=== PATIENT | female | born 1940 | race Caucasian/White ===

== ENCOUNTER → 2016-12-14 | Outpatient (CLI) | payer OTHER, BC ==
[~2016-12-14] MED LIST: AMLO-110 PO; APR/25 PO; ASPI81TA28 PO; ATEN50TA8 PO; BNC/4025 PO; CALCTAB7 PO; CHOL1000 PO; CHOL1CAP13 PO; FURO-85 PO; FURO40TA3 PO; GABA-113 PO; HYDR-4330 PO; HYDR-4715 PO; IBUP-1277 PO; MAGN1TAB15 PO; MECL1TAB42 PO; MULT1TAB79 PO; NAPR220T40 PO; POTA-74 PO; SIMV20TA2 PO; SPIR50TA2 PO; TYLOTC500 PO; ULT/50 PO; WARF-246 PO
[2016-12-14 17:31] LABS: BASO % 0.3 %; BASO ABS # 0.02 K/uL (0-0.2); COMPLETE YES; EOS % 4.7 %; HEMATOCRIT 39.4 % (37-47); IG% 0.1 %; LYMPH % 20.9 %; LYMPH ABS # 1.56 K/uL (1.2-3.4); MEAN CELL VOLUME 90.2 fL (80-100); MEAN CORPUSCULAR HEMOGLOBIN 29.5 pg (25-34); MEAN CORPUSCULAR HGB CONC 32.7 g/dl (32-36); MEAN PLATELET VOLUME 10.2 fL (7.4-10.4); MONO % 9.5 %; NEUT % 64.5 %; PLATELET COUNT 221 K/uL (130-400); RED BLOOD COUNT 4.37 M/uL (4.2-5.4); WHITE BLOOD COUNT 7.45 K/uL (4.8-10.8)
[2016-12-14 17:39] LABS: URINE APPEARANCE CLEAR (CLEAR); URINE BILIRUBIN NEG (NEG); URINE COLOR YELLOW; URINE EPITHELIAL CELL AUTO 0-5 /lpf (0-5); URINE NITRITE NEG (NEG); URINE PH 6.5 (4.5-7.5); URINE SPECIFIC GRAVITY 1.006 (1.000-1.030); UROBILINOGEN NEG (NEG)
[2016-12-14 17:49] LABS: BLOOD UREA NITROGEN 10 mg/dl (7-18); BUN/CREATININE RATIO 12.5 (10-20); CALCIUM 10.1 mg/dl (8.5-10.1); CARBON DIOXIDE 36 mmol/L (21-32); CHLORIDE 101 mmol/L (98-107); CREATININE 0.84 mg/dl (0.60-1.20); GLUCOSE 93 mg/dl (70-99); POTASSIUM 4.3 mmol/L (3.5-5.1); SODIUM 140 mmol/L (136-145)
[2016-12-14 17:50] LABS: MANUAL MICROSCOPIC REQUIRED? NO; REVIEW REQ? NO
[2016-12-14 17:59] LABS: PHOSPHORUS 3.3 mg/dl (2.5-4.9)
[2016-12-14 18:08] LABS: URINE TOTAL PROTEIN < 5.0 mg/dl (0-11.9)
== END | disposition home or self-care (01) ==
LOC: C.LABPVFM 14:32
PROVIDERS: ATTEND Family Medicine
DX: E78.5 Hyperlipidemia, unspecified (principal)

== ENCOUNTER → 2016-12-22 | Outpatient (CLI) | payer OTHER, BC ==
[~2016-12-22] MED LIST changes: -APR/25 PO; +HYDR-4716 PO
--- NOTE | 2016-12-22 15:53 | DIAGNOSTIC IMAGING REPORT ---
RENAL ULTRASOUND CLINICAL HISTORY: Hyperlipidemia. COMPARISON STUDY: None. TECHNIQUE: Sonography of the kidneys and the urinary bladder was performed. FINDINGS: This exam is compromised by suboptimal penetration. The right kidney measures 9 x 5.2 x 5.9 cm and the left measures 11 x 4.7 x 6.4 cm. There is mild renal cortical thinning. There is no hydronephrosis. No calculi or masses are identified by sonography. The right ureteral jet was not visualized. IMPRESSION: 1. No hydronephrosis. 2. Mild renal cortical thinning. 3. Study compromised by suboptimal penetration. Electronically signed by: Clark Gonsalez M.D. 12/22/2016 3:50 PM Dictated Date/Time: 12/22/2016 3:49 PM
== END | disposition home or self-care (01) ==
LOC: C.ULTR 14:31
PROVIDERS: ATTEND Family Medicine
DX: E78.5 Hyperlipidemia, unspecified (principal)

== ENCOUNTER → 2017-01-11 | Day surgery (SDC) | payer OTHER, BC ==
[2017-01-02 15:24] VITALS: Ht 149.9 cm; Wt 82.9 kg
--- NOTE | 2017-01-02 15:57 | PAT Medication Instructions ---
Service Date Jan 02, 2017. Current Home Medication List Acetaminophen (Tylenol), 500-1,000 MG PO PRN PRN for Pain or Fever Aspirin (Aspirin Ec), 81 MG PO QAM Atenolol (Tenormin), 75 MG PO HS Calcium Carbonate-Vitamin D W/ (Caltrate 600 Plus), 1 TAB PO BID Cholecalciferol (Vitamin D3), 1,000 INTER.UNIT PO BID Furosemide (Lasix), 20 MG PO QAM Gabapentin (Neurontin), 300 MG PO TID Hydralazine Hcl (Apresoline), 10 MG PO TID Magnesium Chloride-Calcium Car (Slow Magnesium Chloride/ 70-117 mg), 1 TAB PO QAM Meclizine Hcl (Meclizine Hcl), 1 TAB PO PRN Multiple Vitamins W/ Minerals (Womens Daily Formula), 1 TAB PO QAM Olmesartan/Hctz (Benicar Hct 40/25), 1 TAB PO QAM Potassium Chloride (Potassium Chloride Er), 10 MEQ PO BID Simvastatin (Zocor), 20 MG PO QPM Warfarin Sodium (Warfarin Sodium), 5 MG PO WK Warfarin Sodium (Warfarin Sodium), 2.5 MG PO 6XWK Medication Instructions For Your Scheduled Surgery - Check with prescribing physician and surgeon for instructions: Warfarin Sodium (Warfarin Sodium), 5 MG PO WK Warfarin Sodium (Warfarin Sodium), 2.5 MG PO 6XWK - Hold the following medications the morning of surgery: Furosemide (Lasix), 20 MG PO QAM Calcium Carbonate-Vitamin D W/ (Caltrate 600 Plus), 1 TAB PO BID Cholecalciferol (Vitamin D3), 1,000 INTER.UNIT PO BID Magnesium Chloride-Calcium Car (Slow Magnesium Chloride/ 70-117 mg), 1 TAB PO QAM Multiple Vitamins W/ Minerals (Womens Daily Formula), 1 TAB PO QAM Olmesartan/Hctz (Benicar Hct 40/25), 1 TAB PO QAM Potassium Chloride (Potassium Chloride Er), 10 MEQ PO BID - Take the following medications the morning of surgery with a sip of water OTHERWISE NOTHING TO EAT OR DRINK AFTER MIDNIGHT: Gabapentin (Neurontin), 300 MG PO TID Hydralazine Hcl (Apresoline), 10 MG PO TID Aspirin (Aspirin Ec), 81 MG PO QAM Meclizine Hcl (Meclizine Hcl), 1 TAB PO PRN Acetaminophen (Tylenol), 500-1,000 MG PO PRN PRN for Pain or Fever (may take if needed up to 4 hours prior to surgery) - Take the following medications as scheduled the night before surgery: Gabapentin (Neurontin), 300 MG PO TID Hydralazine Hcl (Apresoline), 10 MG PO TID Calcium Carbonate-Vitamin D W/ (Caltrate 600 Plus), 1 TAB PO BID Cholecalciferol (Vitamin D3), 1,000 INTER.UNIT PO BID Simvastatin (Zocor), 20 MG PO QPM Atenolol (Tenormin), 75 MG PO HS Meclizine Hcl (Meclizine Hcl), 1 TAB PO PRN Potassium Chloride (Potassium Chloride Er), 10 MEQ PO BID Acetaminophen (Tylenol), 500-1,000 MG PO PRN PRN for Pain or Fever If you have any questions please call us at [phone] or [phone] or [phone]
[~2017-01-11] VITALS: Ht 149.9 cm; Wt 82.9 kg
[~2017-01-11] MED LIST changes: +500ML BSS 0.3ML EPI 1:1000PF IRRIG ONE; +ACETAMINOPHEN 325 MG TAB PO PRN; -AMLO-110 PO; +AMVISC PLUS 0.8ML SYRINGE INT OCU ONE; +BSS FLUSH ONE; +ENDOCOAT 0.85ML SYRINGE INT OCU ONE; +EpHEDrine SULFATE 50MG/5ML SYR ONE; +EpINEphrine INJ 1MG/ML AMP 1 MG/ML AMP ONE; -FURO40TA3 PO; -HYDR-4330 PO; -IBUP-1277 PO; +LACTATED RINGER'S 1000ML 1,000 ML IV PRN; +LACTATED RINGER'S 1000ML 500 ML IV SCH; +LIDOCAINE 4% OP SOLN DROP CHARGE ONE; +LIDOCAINE 4% OP SOLN DROP CHARGE OPR SCH; +LIDOCAINE HCL 1% MPF 2 ML VIAL ONE; +LIDOCAINE HCL 2% 2 ML VIAL (20MG/ML) ONE; +MIDAZOLAM HCL 1 MG/ML 2ML VIAL ONE; +MIX: 4ML BSS 1ML EPI 1:1000 PF TOP ONE; +MOXIFLOXACIN OPH SOLN PER DROP CHARGE ONE; -NAPR220T40 PO; +ONDANSETRON INJ 2 MG/ML 2 ML VIAL IV PRN; +ONDANSETRON INJ 2 MG/ML 2 ML VIAL ONE; +POVIDONE-IODINE OP SOLN 30 ML BTL ONE; +PROPARACAINE 0.5% OP SOLN PER DROP CHARGE OPR SCH; +PROPOFOL IV EMULSION 10 MG/ML 20 ML VIAL IV ONE; +TOBRAMYCIN/DEXAMETHASONE OPH OINT PER APPLN CHARGE ONE; -ULT/50 PO
[2017-01-11] MEDS: PHENYLEPHRINE HCL 2.5% OP SOLN PER DROP CHARGE OPR SCH ×3 (06:38→06:48)
[2017-01-11] MEDS: TROPICAMIDE 1% OP SOLN PER DROP CHARGE OPR SCH ×3 (06:39→06:49)
--- NOTE | 2017-01-11 06:39 | History & Physical Bridge - [place] ---
H&P Re-Evaluation Bridge Note: I have examined the patient, reviewed the History & Physical and in the interval since the performance of the History & Physical I have noted the following changes of clinical significance: No changes noted. Right eye cataract surgery
[2017-01-11] MEDS: CYCLOPENTOLATE HCL 1% OP SOLN PER DROP CHARGE OPR SCH ×3 (06:40→06:50)
[2017-01-11] MEDS: MOXIFLOXACIN OPH SOLN PER DROP CHARGE OPR SCH ×3 (06:41→06:51)
--- NOTE | 2017-01-11 07:33 | [facility] Post Operative Brief Note ---
Immediate Operative Summary Operative Date Jan 11, 2017. Pre-Operative Diagnosis Cataract Right Eye Post-Operative Diagnosis Same Procedure(s) Performed Right Cataract Phacoemulsification With Intraocular Lens Implant Surgeon Dr. Bearden Can Intake Worker Surgeon(s) None Estimated Blood Loss 0 Findings right cataract Specimens None Complication(s) None Disposition
--- NOTE | 2017-01-11 07:34 | [facility] Operative Report ---
Operative Report Date of Service Jan 11, 2017. Operative Report Phaco with monofocal IOL DATE OF OPERATION: 01/11/17 PREOPERATIVE DIAGNOSIS: Senile nuclear cataract, right eye POSTOPERATIVE DIAGNOSIS: Senile nuclear cataract, right eye PROCEDURE PERFORMED: Phacoemulsification with intraocular lens implantation, right eye SURGEON: Dr. Moose Bearden ANESTHESIA: LMA general COMPLICATIONS: None DESCRIPTION OF PROCEDURE: After positively identifying the patient both verbally and by wristband in the preoperative area, the right eye was marked as the operative eye. The patient was then brought back to the operating room by the anesthesia and nursing staff where general anesthesia by LMA was induced. The patient was then sterilely prepped and draped in the standard fashion typical for ophthalmic surgery. Steri-strips were placed along the upper eyelids to keep the lashes back, and a lid speculum was placed into the operative eye. At this point, a documented time out was performed with members of the ophthalmology, nursing, and anesthesia staffs all agreeing upon the correct patient, correct location for surgery, correct procedure, and correct type and power of intraocular lens to be implanted. The microscope was then swung into position. First, a paracentesis wound was made using a sideport blade. Then, in sequence, 1% preservative-free lidocaine followed by Endocoat viscoelastic was injected into the anterior chamber. Next , the main incision was made with a keratome blade in triplanar fashion. A sharp cystotome was introduced into the eye and used to create a tear in the anterior capsule, which was directed into a continuous curvilinear capsulorrhexis using Utrata forceps. Hydrodissection was then performed with BSS on a flat-tip cannula. Next, the phacoemulsification handpiece was introduced into the eye and used to remove the nucleus in a [id number] fashion. This was done without complication and then the irrigation-aspiration handpiece was introduced into the eye and used to remove all remaining cortical and epinuclear material. Amvisc was then injected into the anterior chamber as well as into the capsular bag and using the lens injector system, an MX60 23.0 D lens, serial number [id number], and expiration date 05/2019 was injected into the capsular bag and rotated into the correct position. Next, the irrigation- aspiration handpiece was used to remove all remaining Amvisc. BSS was used to hydrate the main wound, and then BSS was injected into the paracentesis site to reach physiologic pressure and then the main wound was checked and found to be watertight. The patient was given drops of Vigamox and Tobradex ointment into the operative eye, and then the surrounding area was cleaned and dried. A clear plastic shield was placed over the eye and the patient was then sat up and taken from the operating room by the anesthesia staff having tolerated the procedure well and suffering no complications. DISPOSITION: The patient was returned to the recovery room in stable condition. I attest to the content of the Intraoperative Record and any orders documented therein. Any exceptions are noted below.
--- NOTE | 2017-01-11 07:35 | Discharge Instructions-SurgCtr ---
Discharge Instructions Date of Service Jan 11, 2017. Visit Reason for Visit: Cataract Right Eye Discharge Discharge Diagnosis / Problem: right cataract Discharge Goals Goal(s): Decrease discomfort, Improve function Activity Recommendations Activity Limitations: as noted below Anesthesia . Post Anesthesia Instructions: If you have had General Anesthesia or IV Sedation: * Do not drive today. * Resume driving when surgeon permits. * Do not make important decisions or sign legal documents today. * Call surgeon for: 1. Temperature elevations greater than 101 degrees F. 2. Uncontrollable pain. 3. Excessive bleeding. 4. Persistent nausea and vomiting. 5. Medication intolerance (nausea, vomiting or rash). * For nausea and vomiting use only clear liquids such as: tea, soda, bouillon until nausea subsides, then gradually increase diet as tolerated. * If you have any concerns or questions, call your surgeon's office. If physician is unavailable and it is an emergency, call 911 or go to the nearest emergency room. . Instructions / Follow-Up Instructions / Follow-Up ACTIVITY RECOMMENDATIONS: * Light activities. * You may walk outside, read, watch television. * You may notice redness on the white part of the eye and some blurry vision - this is normal. MEDICATIONS: Resume previous medications unless instructed otherwise by your surgeon. Start all eye drops at 9:30 am today: * Eye drops (today): Prednisone - one drop in operative eye every 2 hours while awake Ofloxacin - one drop in operative eye every 2 hours while awake Bromfenac - one drop in operative eye daily SPECIAL CARE INSTRUCTIONS: * Tape plastic shield over eye to sleep at night. Call your doctor at with any concerns or problems. FOLLOW UP VISIT: Follow-up with Dr Bearden at [facility] as scheduled. Diet Recommendations Home Diet: no limitations Procedures Procedures Performed: Right Cataract Phacoemulsification With Intraocular Lens Implant Pending Studies Studies pending at discharge: no Medical Emergencies . Who to Call and When: Medical Emergencies: If at any time you feel your situation is an emergency, please call 911 immediately. . Non-Emergent Contact Non-Emergency issues call your: Surgeon . . "Provider Documentation" section prepared by Moose Bearden. .
--- NOTE | 2017-01-11 08:01 | Anesthesia Progress Nt - [facility] ---
Anesthesia Post Op Note Date & Time Jan 11, 2017 at 08:00 Vital Signs Pain Intensity: 0 Vital Signs Past 12 Hours Date Time Temp Pulse Resp B/P Pulse Ox O2 Delivery O2 Flow Rate FiO2 01/11/17 07:37 36.4 62 16 145/73 95 Diffusion Mask 6 01/11/17 06:31 37.2 68 20 176/104 98 Room Air Notes Mental Status: alert / awake / arousable, participated in evaluation Pt Amnestic to Procedure: Yes Nausea / Vomiting: adequately controlled Pain: adequately controlled Airway Patency, RR, SpO2: stable & adequate BP & HR: stable & adequate Hydration State: stable & adequate Anesthetic Complications: no major complications apparent After a long discussion, pt refused IV sedation, saying she couldn't stand someone touching her eye. We did a GA w/ LMA and she did fine.
[2017-01-11 08:13] VITALS: TEMP 36.4
[2017-01-11 08:38] VITALS: BP 164/72; PULSE 65; O2SAT 97
== END | disposition home or self-care (01) ==
LOC: X.SURG 06:10
PROVIDERS: ATTEND Ophthalmology
DX: H25.11 Age-related nuclear cataract, right eye (principal); I48.91 Unspecified atrial fibrillation; M19.90 Unspecified osteoarthritis, unspecified site; E66.9 Obesity, unspecified; Z68.37 Body mass index [BMI] 37.0-37.9, adult; Z88.0 Allergy status to penicillin; Z96.651 Presence of right artificial knee joint; Z79.01 Long term (current) use of anticoagulants; Z90.89 Acquired absence of other organs

== ENCOUNTER → 2017-01-24 | Outpatient (CLI) | payer OTHER, BC ==
[~2017-01-24] MED LIST changes: -500ML BSS 0.3ML EPI 1:1000PF IRRIG ONE; -ACETAMINOPHEN 325 MG TAB PO PRN; -AMVISC PLUS 0.8ML SYRINGE INT OCU ONE; -BSS FLUSH ONE; -ENDOCOAT 0.85ML SYRINGE INT OCU ONE; -EpHEDrine SULFATE 50MG/5ML SYR ONE; -EpINEphrine INJ 1MG/ML AMP 1 MG/ML AMP ONE; -LACTATED RINGER'S 1000ML 1,000 ML IV PRN; -LACTATED RINGER'S 1000ML 500 ML IV SCH; -LIDOCAINE 4% OP SOLN DROP CHARGE ONE; -LIDOCAINE 4% OP SOLN DROP CHARGE OPR SCH; -LIDOCAINE HCL 1% MPF 2 ML VIAL ONE; -LIDOCAINE HCL 2% 2 ML VIAL (20MG/ML) ONE; -MIDAZOLAM HCL 1 MG/ML 2ML VIAL ONE; -MIX: 4ML BSS 1ML EPI 1:1000 PF TOP ONE; -MOXIFLOXACIN OPH SOLN PER DROP CHARGE ONE; -ONDANSETRON INJ 2 MG/ML 2 ML VIAL IV PRN; -ONDANSETRON INJ 2 MG/ML 2 ML VIAL ONE; -POVIDONE-IODINE OP SOLN 30 ML BTL ONE; -PROPARACAINE 0.5% OP SOLN PER DROP CHARGE OPR SCH; -PROPOFOL IV EMULSION 10 MG/ML 20 ML VIAL IV ONE; -TOBRAMYCIN/DEXAMETHASONE OPH OINT PER APPLN CHARGE ONE
[2017-01-24 16:35] LABS: BLOOD UREA NITROGEN 11 mg/dl (7-18); BUN/CREATININE RATIO 12.7 (10-20); CALCIUM 9.5 mg/dl (8.5-10.1); CARBON DIOXIDE 30 mmol/L (21-32); CHLORIDE 103 mmol/L (98-107); GLUCOSE 91 mg/dl (70-99); MAGNESIUM 1.9 mg/dl (1.8-2.4); PHOSPHORUS 2.8 mg/dl (2.5-4.9); POTASSIUM 3.8 mmol/L (3.5-5.1); SODIUM 139 mmol/L (136-145)
== END | disposition home or self-care (01) ==
LOC: C.LAB1850 14:26
PROVIDERS: ATTEND Internal Medicine Nephrology
DX: I10 Essential (primary) hypertension (principal)

== ENCOUNTER → 2017-01-25 | Day surgery (SDC) | payer OTHER, BC ==
[2017-01-23 12:20] VITALS: Ht 149.9 cm; Wt 82.7 kg
[~2017-01-25] VITALS: Ht 149.9 cm; Wt 82.7 kg
[~2017-01-25] MED LIST changes: +500ML BSS 0.3ML EPI 1:1000PF IRRIG ONE; +ACETAMINOPHEN 325 MG TAB PO PRN; +AMVISC PLUS 0.8ML SYRINGE INT OCU ONE; +ATROPINE SULFATE 0.1 MG/ML 5ML SYR IV PRN; +BSS FLUSH ONE; +ENDOCOAT 0.85ML SYRINGE INT OCU ONE; +EpHEDrine SULFATE 50MG/5ML SYR ONE; +EpHEDrine SULFATE INJ 50 MG/ML AMP IV PRN; +EpINEphrine INJ 1MG/ML AMP 1 MG/ML AMP ONE; +FENTANYL CITRATE INJ 50 MCG/1 ML 2 ML VIAL ONE; +LACTATED RINGER'S 1000ML 500 ML IV SCH; +LIDOCAINE 4% OP SOLN DROP CHARGE ONE; +LIDOCAINE 4% OP SOLN DROP CHARGE OPL SCH; +LIDOCAINE HCL 1% MPF 2 ML VIAL ONE; +LIDOCAINE HCL 2% 2 ML VIAL (20MG/ML) ONE; +MIX: 4ML BSS 1ML EPI 1:1000 PF TOP ONE; +MOXIFLOXACIN OPH SOLN PER DROP CHARGE ONE; +ONDANSETRON INJ 2 MG/ML 2 ML VIAL ONE; +POVIDONE-IODINE OP SOLN 30 ML BTL ONE; +PROPARACAINE 0.5% OP SOLN PER DROP CHARGE OPL SCH; +PROPOFOL IV EMULSION 10 MG/ML 20 ML VIAL IV ONE; +TOBRAMYCIN/DEXAMETHASONE OPH OINT PER APPLN CHARGE ONE
[2017-01-25] MEDS: PHENYLEPHRINE HCL 2.5% OP SOLN PER DROP CHARGE OPL SCH ×3 (10:08→10:18)
[2017-01-25] MEDS: TROPICAMIDE 1% OP SOLN PER DROP CHARGE OPL SCH ×3 (10:09→10:19)
[2017-01-25] MEDS: CYCLOPENTOLATE HCL 1% OP SOLN PER DROP CHARGE OPL SCH ×3 (10:10→10:20)
[2017-01-25] MEDS: MOXIFLOXACIN OPH SOLN PER DROP CHARGE OPL SCH ×3 (10:11→10:21)
--- NOTE | 2017-01-25 10:37 | History & Physical Bridge - [place] ---
H&P Re-Evaluation Bridge Note: I have examined the patient, reviewed the History & Physical and in the interval since the performance of the History & Physical I have noted the following changes of clinical significance: No changes noted. Left eye cataract surgery.
--- NOTE | 2017-01-25 11:45 | [facility] Operative Report ---
Operative Report Date of Service January 25, 2017. Operative Report Phaco with monofocal IOL DATE OF OPERATION: 01/25/17 PREOPERATIVE DIAGNOSIS: Senile nuclear cataract, left eye POSTOPERATIVE DIAGNOSIS: Senile nuclear cataract, left eye PROCEDURE PERFORMED: Phacoemulsification with intraocular lens implantation, left eye SURGEON: Dr. Moose Bearden ANESTHESIA: LMA general COMPLICATIONS: None DESCRIPTION OF PROCEDURE: After positively identifying the patient both verbally and by wristband in the preoperative area, the left eye was marked as the operative eye. The patient was then brought back to the operating room by the anesthesia and nursing staff. An LMA was placed by the anesthesia staff. The patient was then sterilely prepped and draped in the standard fashion typical for ophthalmic surgery. Steri-strips were placed along the upper eyelids to keep the lashes back, and a lid speculum was placed into the operative eye. At this point, a documented time out was performed with members of the ophthalmology, nursing, and anesthesia staffs all agreeing upon the correct patient, correct location for surgery, correct procedure, and correct type and power of intraocular lens to be implanted. The microscope was then swung into position. First, a paracentesis wound was made using a sideport blade. Then, in sequence, 1% preservative-free lidocaine followed by Endocoat viscoelastic was injected into the anterior chamber. Next , the main incision was made with a keratome blade in triplanar fashion. A sharp cystotome was introduced into the eye and used to create a tear in the anterior capsule, which was directed into a continuous curvilinear capsulorrhexis using Utrata forceps. Hydrodissection was then performed with BSS on a flat-tip cannula. Next, the phacoemulsification handpiece was introduced into the eye and used to remove the nucleus in a [id number]-vfy-[id number] fashion. This was done without complication and then the irrigation-aspiration handpiece was introduced into the eye and used to remove all remaining cortical and epinuclear material. Amvisc was then injected into the anterior chamber as well as into the capsular bag and using the lens injector system, an MX60 22.0 D lens, serial number [id number], and expiration date 09/2019 was injected into the capsular bag and rotated into the correct position. Next, the irrigation- aspiration handpiece was used to remove all remaining Amvisc. BSS was used to hydrate the main wound, and then BSS was injected into the paracentesis site to reach physiologic pressure and then the main wound was checked and found to be watertight. The patient was given drops of Vigamox and Tobradex ointment into the operative eye, and then the surrounding area was cleaned and dried. A clear plastic shield was placed over the eye and the patient was then taken from the operating room by the anesthesia staff having tolerated the procedure well and suffering no complications. DISPOSITION: The patient was returned to the recovery room in stable condition. I attest to the content of the Intraoperative Record and any orders documented therein. Any exceptions are noted below.
--- NOTE | 2017-01-25 11:46 | [facility] Post Operative Brief Note ---
Immediate Operative Summary Operative Date January 25, 2017. Pre-Operative Diagnosis Left eye cataract Post-Operative Diagnosis Same as preop Procedure(s) Performed Left Cataract Phacoemulsification With Intraocular Lens Implant Surgeon Dr. Bearden Boat Cleaner Surgeon(s) None Estimated Blood Loss 0 mL Findings left cataract Specimens None Complication(s) None Disposition Recovery Room / PACU
--- NOTE | 2017-01-25 11:47 | Discharge Instructions-SurgCtr ---
Discharge Instructions Date of Service January 25, 2017. Visit Reason for Visit: Cataract Left Eye Discharge Discharge Diagnosis / Problem: left cataract Discharge Goals Goal(s): Decrease discomfort, Improve function Activity Recommendations Activity Limitations: as noted below Anesthesia . Post Anesthesia Instructions: If you have had General Anesthesia or IV Sedation: * Do not drive today. * Resume driving when surgeon permits. * Do not make important decisions or sign legal documents today. * Call surgeon for: 1. Temperature elevations greater than 101 degrees F. 2. Uncontrollable pain. 3. Excessive bleeding. 4. Persistent nausea and vomiting. 5. Medication intolerance (nausea, vomiting or rash). * For nausea and vomiting use only clear liquids such as: tea, soda, bouillon until nausea subsides, then gradually increase diet as tolerated. * If you have any concerns or questions, call your surgeon's office. If physician is unavailable and it is an emergency, call 911 or go to the nearest emergency room. . Instructions / Follow-Up Instructions / Follow-Up ACTIVITY RECOMMENDATIONS: * Light activities. * You may walk outside, read, watch television. * You may notice redness on the white part of the eye and some blurry vision - this is normal. MEDICATIONS: Resume previous medications unless instructed otherwise by your surgeon. Start all eye drops at 2 pm today: * Eye drops (today): Prednisone - one drop in operative eye every 2 hours while awake Ofloxacin - one drop in operative eye every 2 hours while awake Bromfenac - one drop in operative eye daily SPECIAL CARE INSTRUCTIONS: * Tape plastic shield over eye to sleep at night. Call your doctor at with any concerns or problems. FOLLOW UP VISIT: Follow-up with Dr Bearden at [place] office as scheduled. Diet Recommendations Home Diet: no limitations Procedures Procedures Performed: Left Cataract Phacoemulsification With Intraocular Lens Implant Pending Studies Studies pending at discharge: no Medical Emergencies . Who to Call and When: Medical Emergencies: If at any time you feel your situation is an emergency, please call 911 immediately. . Non-Emergent Contact Non-Emergency issues call your: Surgeon . . "Provider Documentation" section prepared by Moose Bearden. .
[2017-01-25 12:23] VITALS: TEMP 36.3
--- NOTE | 2017-01-25 12:29 | Anesthesia Progress Nt - [facility] ---
Anesthesia Post Op Note Date & Time January 25, 2017 at 12:30 Vital Signs Pain Intensity: 0 Vital Signs Past 12 Hours Date Time Temp Pulse Resp B/P Pulse Ox O2 Delivery O2 Flow Rate FiO2 01/25/17 12:23 36.3 60 16 146/80 97 Room Air 01/25/17 12:18 53 01/25/17 12:18 53 01/25/17 12:15 170/80 01/25/17 12:14 37.0 55 16 178/75 97 Room Air 01/25/17 12:13 58 16 01/25/17 12:13 56 16 99 01/25/17 12:12 60 20 100 01/25/17 12:12 60 20 100 01/25/17 12:12 57 20 01/25/17 12:12 57 20 01/25/17 12:11 178/75 01/25/17 12:11 178/75 01/25/17 12:07 61 18 01/25/17 12:07 58 18 100 01/25/17 12:07 58 18 100 01/25/17 12:07 61 18 01/25/17 12:05 173/70 01/25/17 12:05 173/70 01/25/17 12:02 55 15 01/25/17 12:02 55 15 01/25/17 12:02 56 15 100 01/25/17 12:02 56 15 100 01/25/17 12:00 161/85 01/25/17 12:00 161/85 01/25/17 11:57 60 16 100 01/25/17 11:57 60 16 01/25/17 11:57 60 16 100 01/25/17 11:57 60 16 01/25/17 11:56 160/66 01/25/17 11:54 56 14 100 01/25/17 11:54 57 14 01/25/17 11:50 164/72 01/25/17 11:49 36.8 58 16 165/74 100 Diffusion Mask 6 01/25/17 11:49 58 20 165/74 100 01/25/17 11:49 58 20 01/25/17 10:00 36.8 52 18 153/76 95 Room Air Notes Mental Status: alert / awake / arousable, participated in evaluation Pt Amnestic to Procedure: Yes Nausea / Vomiting: adequately controlled Pain: adequately controlled Airway Patency, RR, SpO2: stable & adequate BP & HR: stable & adequate Hydration State: stable & adequate Anesthetic Complications: no major complications apparent
[2017-01-25 12:43] VITALS: BP 164/89; PULSE 56; O2SAT 96
== END | disposition home or self-care (01) ==
LOC: X.SURG 09:34
PROVIDERS: ATTEND Ophthalmology
DX: H25.12 Age-related nuclear cataract, left eye (principal); I10 Essential (primary) hypertension; E78.00 Pure hypercholesterolemia, unspecified; Z79.01 Long term (current) use of anticoagulants; Z79.82 Long term (current) use of aspirin; Z79.899 Other long term (current) drug therapy

== ENCOUNTER → 2017-04-26 | Outpatient (CLI) | payer OTHER, BC ==
[~2017-04-26] MED LIST changes: -500ML BSS 0.3ML EPI 1:1000PF IRRIG ONE; -ACETAMINOPHEN 325 MG TAB PO PRN; -AMVISC PLUS 0.8ML SYRINGE INT OCU ONE; +APR/25 PO; -ATROPINE SULFATE 0.1 MG/ML 5ML SYR IV PRN; -BSS FLUSH ONE; -ENDOCOAT 0.85ML SYRINGE INT OCU ONE; -EpHEDrine SULFATE 50MG/5ML SYR ONE; -EpHEDrine SULFATE INJ 50 MG/ML AMP IV PRN; -EpINEphrine INJ 1MG/ML AMP 1 MG/ML AMP ONE; -FENTANYL CITRATE INJ 50 MCG/1 ML 2 ML VIAL ONE; -HYDR-4716 PO; -LACTATED RINGER'S 1000ML 500 ML IV SCH; -LIDOCAINE 4% OP SOLN DROP CHARGE ONE; -LIDOCAINE 4% OP SOLN DROP CHARGE OPL SCH; -LIDOCAINE HCL 1% MPF 2 ML VIAL ONE; -LIDOCAINE HCL 2% 2 ML VIAL (20MG/ML) ONE; -MIX: 4ML BSS 1ML EPI 1:1000 PF TOP ONE; -MOXIFLOXACIN OPH SOLN PER DROP CHARGE ONE; -ONDANSETRON INJ 2 MG/ML 2 ML VIAL ONE; -POVIDONE-IODINE OP SOLN 30 ML BTL ONE; -PROPARACAINE 0.5% OP SOLN PER DROP CHARGE OPL SCH; -PROPOFOL IV EMULSION 10 MG/ML 20 ML VIAL IV ONE; -TOBRAMYCIN/DEXAMETHASONE OPH OINT PER APPLN CHARGE ONE
[2017-04-26 16:15] LABS: BLOOD UREA NITROGEN 9 mg/dl (7-18); CALCIUM 9.5 mg/dl (8.5-10.1); CARBON DIOXIDE 33 mmol/L (21-32); CHLORIDE 102 mmol/L (98-107); CREATININE 0.86 mg/dl (0.60-1.20); GLUCOSE 87 mg/dl (70-99); MAGNESIUM 1.8 mg/dl (1.8-2.4); POTASSIUM 3.7 mmol/L (3.5-5.1); SODIUM 138 mmol/L (136-145)
[2017-04-26 16:16] LABS: PHOSPHORUS 3.1 mg/dl (2.5-4.9)
== END | disposition home or self-care (01) ==
LOC: C.LAB1850 15:04
PROVIDERS: ATTEND Internal Medicine Nephrology
DX: I10 Essential (primary) hypertension (principal)

== ENCOUNTER → 2017-05-24 | Outpatient (CLI) | payer OTHER, BC ==
[2017-05-24 18:02] LABS: BLOOD UREA NITROGEN 17 mg/dl (7-18); BUN/CREATININE RATIO 13.9 (10-20); CALCIUM 9.8 mg/dl (8.5-10.1); CARBON DIOXIDE 30 mmol/L (21-32); CHLORIDE 101 mmol/L (98-107); GLUCOSE 100 mg/dl (70-99); MAGNESIUM 1.7 mg/dl (1.8-2.4); PHOSPHORUS 2.8 mg/dl (2.5-4.9); POTASSIUM 4.5 mmol/L (3.5-5.1); SODIUM 137 mmol/L (136-145)
== END | disposition home or self-care (01) ==
LOC: C.LABPVFM 14:37
PROVIDERS: ATTEND Internal Medicine Nephrology
DX: I89.0 Lymphedema, not elsewhere classified (principal)

== ENCOUNTER 2017-05-31 14:56 | Emergency (ER) | payer OTHER, BC ==
[~2017-05-31] VITALS: Ht 149.9 cm; Wt 79.0 kg
[~2017-05-31 14:56] MED LIST changes: -APR/25 PO; -CHOL1CAP13 PO; -SPIR50TA2 PO
[2017-05-31 15:06] VITALS: TEMP 36.9; Ht 149.9 cm; Wt 79.0 kg
[2017-05-31] MEDS ORDERED: CHOL1CAP13 PO (16:03)
[2017-05-31] MEDS ORDERED: SPIR50TA2 PO (16:03)
[2017-05-31] MEDS ORDERED: APR/25 PO (16:03)
[2017-05-31 16:55] LABS: URINE APPEARANCE CLEAR (CLEAR); URINE BILIRUBIN NEG (NEG); URINE COLOR YELLOW; URINE NITRITE NEG (NEG); URINE PH 6.5 (4.5-7.5); URINE SPECIFIC GRAVITY 1.007 (1.000-1.030); UROBILINOGEN NEG (NEG)
[2017-05-31 16:56] LABS: BASO % 0.3 %; BASO ABS # 0.02 K/uL (0-0.2); COMPLETE YES; EOS % 4.5 %; IG% 0.2 %; LYMPH % 23.5 %; LYMPH ABS # 1.56 K/uL (1.2-3.4); MEAN CELL VOLUME 86.9 fL (80-100); MEAN CORPUSCULAR HEMOGLOBIN 28.4 pg (25-34); MEAN CORPUSCULAR HGB CONC 32.7 g/dl (32-36); MEAN PLATELET VOLUME 9.8 fL (7.4-10.4); MONO % 6.3 %; NEUT % 65.2 %; PLATELET COUNT 243 K/uL (130-400); RED BLOOD COUNT 5.18 M/uL (4.2-5.4); WHITE BLOOD COUNT 6.63 K/uL (4.8-10.8)
[2017-05-31 16:57] LABS: MANUAL MICROSCOPIC REQUIRED? NO; REVIEW REQ? NO
--- NOTE | 2017-05-31 16:59 | DIAGNOSTIC IMAGING REPORT ---
CERVICAL SPINE W/O CT DOSE: 897.46 mGy.cm HISTORY: Pain. Neuropathy. left sided pain TECHNIQUE: Multiaxial CT images of the cervical spine were performed and reformatted in the sagittal and coronal plane without the use of contrast. A dose lowering technique was utilized adhering to the principles of ALARA. COMPARISON: None FINDINGS: Findings consistent with generalized degenerative change. Anterior fusion C5-C6. Fusion appears solid. No evidence for an acute compression deformity. No evidence for significant compromise of the spinal canal based on CT criteria. Degenerative changes C1-C2 complex. IMPRESSION: Considerable degenerative and postoperative change. No acute process. No major compromise of the spinal canal. The above report was generated using voice recognition software. It may contain grammatical, syntax or spelling errors. Electronically signed by: Tylor Santamaria M.D. 05/31/2017 4:58 PM Dictated Date/Time: 05/31/2017 4:56 PM
[2017-05-31 17:01] VITALS: O2SAT 98
--- NOTE | 2017-05-31 17:01 | DIAGNOSTIC IMAGING REPORT ---
CT OF THE HEAD WITHOUT CONTRAST CLINICAL HISTORY: Altered mental status. Weakness. COMPARISON STUDY: Head CT August 13, 2015. TECHNIQUE: Helical axial images of the head were obtained without IV contrast. Automated exposure control was utilized for the study. A dose lowering technique was utilized adhering to the principles of ALARA. FINDINGS: No acute intracranial hemorrhage, midline shift or mass effect is present. Ventricular system is normal for age. Basilar cisterns are patent. There are no extra-axial collections. White matter hypodensity suggests small vessel disease. There are no findings to suggest acute dural sinus thrombosis or acute territorial infarct. There are no significant calvarial abnormalities. Visualized portions of the sinuses and mastoid air cells are clear. IMPRESSION: No acute intracranial findings. Electronically signed by: Clark Gonsalez M.D. 05/31/2017 5:00 PM Dictated Date/Time: 05/31/2017 4:58 PM
[2017-05-31 17:15] LABS: ALT/SGPT 25 U/L (12-78); BLOOD UREA NITROGEN 12 mg/dl (7-18); BUN/CREATININE RATIO 11.1 (10-20); C-REACTIVE PROTEIN < 0.29 mg/dl (0-0.29); CALCIUM 9.5 mg/dl (8.5-10.1); CARBON DIOXIDE 27 mmol/L (21-32); CHLORIDE 102 mmol/L (98-107); GLUCOSE 118 mg/dl (70-99); MAGNESIUM 1.8 mg/dl (1.8-2.4); POTASSIUM 3.8 mmol/L (3.5-5.1); SODIUM 134 mmol/L (136-145)
[2017-05-31 17:24] LABS: ALKALINE PHOSPHATASE 64 U/L (45-117); AST/SGOT 28 U/L (15-37)
[2017-05-31 17:26] LABS: INR 3.5 (0.9-1.1); PARTIAL THROMBOPLASTIN RATIO 1.7; PROTHROMBIN TIME (PATIENT) 39.5 SECONDS (9.0-12.0)
--- NOTE | 2017-05-31 18:09 | EMERGENCY ROOM VISIT NOTE ---
History Report prepared by Singh: Alessia Navarro Under the Supervision of: Nhung AllenO. First contact with patient: 15:11 Chief Complaint: HEAD PAIN Stated Complaint: HEAD PAIN History of Present Illness The patient is a 76 year old female who presents to the Emergency Room with complaints of worsening head pain for the past 4 days. She has a history of atrial fibrillation and cervical stenosis. She is on Coumadin. Eight days ago the patient went to sit down and missed the chair. She fell to the ground and hit her right hip. She is unsure if she hit her head. Four days ago the patient developed some left-sided neck pain and head pressure. It is intermittent and lasts for about an hour at a time. Movement exacerbates her pain, while resting helps to alleviate it. The patient states that she has had this pressure in her head for years and never had any testing for it before. She states that today it was much more severe than it has ever been before. The patient rates her current pain as an 8/10 in severity. She denies visual changes, weakness, numbness, fevers, lightheadedness, chest pain, shortness of breath, nausea, vomiting, diarrhea, constipation, and urinary symptoms. Source of History: patient Onset: 4 days ago Position: head Symptom Intensity: 8/10 Quality: pressure Timing: worsening Modifying Factors (Worsening): movement Modifying Factors (Relieving): rest Associated Symptoms: No fevers, No chest pain, No SOB, No nausea, No vomiting, No diarrhea, No urinary symptoms, No weakness, No numbness Review of Systems See HPI for pertinent positives & negatives. A total of 10 systems reviewed and were otherwise negative. Past Medical & Surgical Medical Problems: (1) A-fib (2) Arthritis (3) Cervical stenosis of spinal canal (4) Edema (5) H/O osteoporosis (6) High cholesterol (7) Hypertension (8) Obesity (9) Sciatica (10) Vertigo Surgical Problems: (1) History of right knee joint replacement (2) Rotator cuff tear Family History Patient reports no known family medical history. Social History Smoking Status: Never Smoker Alcohol Use: occasionally Marital Status: Housing Status: lives with family Occupation Status: retired Current/Historical Medications Scheduled Aspirin (Aspirin Ec), 81 MG PO QAM Calcium Carbonate-Vitamin D W/ (Caltrate 600 Plus), 1 TAB PO BID Cholecalciferol (D3), 2,000 UNITS PO BID Gabapentin (Neurontin), 300 MG PO TID Hydralazine HCl (Hydralazine HCl), 25 MG PO BID Magnesium Chloride-Calcium Car (Slow Magnesium Chloride/ 70-117 mg), 1 TAB PO QAM Multiple Vitamins W/ Minerals (Womens Daily Formula), 1 TAB PO QAM Olmesartan/Hctz (Benicar Hct 40/25), 1 TAB PO QAM Simvastatin (Zocor), 20 MG PO QPM Spironolactone (Aldactone), 50 MG PO QPM Warfarin Sodium (Warfarin Sodium), 5 MG PO WK Warfarin Sodium (Warfarin Sodium), 2.5 MG PO 6XWK Scheduled PRN Furosemide (Lasix), 20 MG PO QAM PRN for Meclizine Hcl (Meclizine Hcl), 25 MG PO Q8 PRN for Dizziness or Vertigo Allergies Coded Allergies: Acetaminophen (Unverified Allergy, Unknown, hallucinations, 05/31/17) Hydrocodone (Unverified Allergy, Unknown, HALLUCINATIONS, 05/31/17) Oxycodone (Unverified Allergy, Unknown, hallucinations, 05/31/17) Penicillins (Verified Allergy, Unknown, UNKNOWN, 01/25/17) Propoxyphene (Unverified Allergy, Unknown, UNKNOWN, 05/31/17) Physical Exam Vital Signs Date Time Temp Pulse Resp B/P (MAP) Pulse Ox O2 Delivery O2 Flow Rate FiO2 05/31/17 19:26 70 18 160/90 99 05/31/17 18:00 68 20 155/62 99 Room Air 05/31/17 17:59 71 05/31/17 17:01 67 20 155/62 98 Room Air 05/31/17 17:01 98 Room Air 05/31/17 15:06 36.9 69 20 136/79 97 Room Air Physical Exam GENERAL: Patient is awake, alert, and in no acute distress. Patient is resting comfortably and showing no signs of anxiety EYES: The conjunctivae are clear. The pupils are round and reactive. EARS, NOSE, MOUTH AND THROAT: The nose is without any evidence of any deformity. Mucous membranes are moist tongue is midline. TMs were clear bilaterally. No tenderness over the temporal arteries. NECK: No midline tenderness noted. There was some tenderness noted over the lateral left side, no step-off noted. RESPIRATORY: Normal respiratory effort is noted there is no evidence of wheezing rhonchi or rales CARDIOVASCULAR: Irregular rate and rhythm noted, there were no murmurs rubs or gallops normal S1 normal S2 GASTROINTESTINAL: The abdomen is soft. Bowel sounds are present in all quadrants. Abdomen is nontender MUSCULOSKELETAL/EXTREMITIES: There is no evidence of gross deformity full range of motion is noted in the hips and shoulders SKIN: There is no obvious evidence of any rash. There are no petechiae, pallor or cyanosis noted. Lymphedema bilaterally. NEUROLOGIC: Patient is awake alert and oriented x3 strength is symmetric patellar reflexes are 2+ bilaterally Medical Decision & Procedures ER Provider Diagnostic Interpretation: Radiology results as stated below per my review and radiologist interpretation: CT OF THE HEAD WITHOUT CONTRAST CLINICAL HISTORY: Altered mental status. Weakness. COMPARISON STUDY: Head CT August 13, 2015. TECHNIQUE: Helical axial images of the head were obtained without IV contrast. Automated exposure control was utilized for the study. A dose lowering technique was utilized adhering to the principles of ALARA. FINDINGS: No acute intracranial hemorrhage, midline shift or mass effect is present. Ventricular system is normal for age. Basilar cisterns are patent. There are no extra-axial collections. White matter hypodensity suggests small vessel disease. There are no findings to suggest acute dural sinus thrombosis or acute territorial infarct. There are no significant calvarial abnormalities. Visualized portions of the sinuses and mastoid air cells are clear. IMPRESSION: No acute intracranial findings. Electronically signed by: Clark Gonsalez M.D. 05/31/2017 5:00 PM Dictated Date/Time: 05/31/2017 4:58 PM CHEST ONE VIEW PORTABLE CLINICAL HISTORY: Altered mental status. Weakness. COMPARISON STUDY: Chest radiograph August 13, 2015. FINDINGS: Lung volumes are normal. No pneumothorax or pleural effusion is present. There is no consolidation to suggest pneumonia. Linear left midlung opacity suggests atelectasis or scarring. Anterior cervical spine fusion is incidentally noted. Moderate cardiomegaly is noted. There is no evidence of pulmonary edema. IMPRESSION: No acute cardiopulmonary findings. No change in appearance of the chest. Electronically signed by: Clark Gonsalez M.D. 05/31/2017 6:13 PM Dictated Date/Time: 05/31/2017 6:12 PM CERVICAL SPINE W/O CT DOSE: 897.46 mGy.cm HISTORY: Pain. Neuropathy. left sided pain TECHNIQUE: Multiaxial CT images of the cervical spine were performed and reformatted in the sagittal and coronal plane without the use of contrast. A dose lowering technique was utilized adhering to the principles of ALARA. COMPARISON: None FINDINGS: Findings consistent with generalized degenerative change. Anterior fusion C5-C6. Fusion appears solid. No evidence for an acute compression deformity. No evidence for significant compromise of the spinal canal based on CT criteria. Degenerative changes C1-C2 complex. IMPRESSION: Considerable degenerative and postoperative change. No acute process. No major compromise of the spinal canal. The above report was generated using voice recognition software. It may contain grammatical, syntax or spelling errors. Electronically signed by: Tylor Santamaria M.D. 05/31/2017 4:58 PM Dictated Date/Time: 05/31/2017 4:56 PM Laboratory Results 05/31/17 16:27 Red Blood Count 5.18, Mean Corpuscular Volume 86.9, Mean Corpuscular Hemoglobin 28.4, Mean Corpuscular Hemoglobin Concent 32.7, Mean Platelet Volume 9.8, Neutrophils (%) (Auto) 65.2, Lymphocytes (%) (Auto) 23.5, Monocytes (%) (Auto) 6.3, Eosinophils (%) (Auto) 4.5, Basophils (%) (Auto) 0.3, Neutrophils # (Auto) 4.32, Lymphocytes # (Auto) 1.56, Monocytes # (Auto) 0.42, Eosinophils # (Auto) 0.30, Basophils # (Auto) 0.02 05/31/17 16:27 Test 05/31/17 16:27 White Blood Count 6.63 K/uL (4.8-10.8) Red Blood Count 5.18 M/uL (4.2-5.4) Hemoglobin 14.7 g/dL (12.0-16.0) Hematocrit 45.0 % (37-47) Mean Corpuscular Volume 86.9 fL (80-100) Mean Corpuscular Hemoglobin 28.4 pg (25-34) Mean Corpuscular Hemoglobin Concent 32.7 g/dl (32-36) Platelet Count 243 K/uL (130-400) Mean Platelet Volume 9.8 fL (7.4-10.4) Neutrophils (%) (Auto) 65.2 % Lymphocytes (%) (Auto) 23.5 % Monocytes (%) (Auto) 6.3 % Eosinophils (%) (Auto) 4.5 % Basophils (%) (Auto) 0.3 % Neutrophils # (Auto) 4.32 K/uL (1.4-6.5) Lymphocytes # (Auto) 1.56 K/uL (1.2-3.4) Monocytes # (Auto) 0.42 K/uL (0.11-0.59) Eosinophils # (Auto) 0.30 K/uL (0-0.5) Basophils # (Auto) 0.02 K/uL (0-0.2) RDW Standard Deviation 46.1 fL (36.4-46.3) RDW Coefficient of Variation 14.4 % (11.5-14.5) Immature Granulocyte % (Auto) 0.2 % Immature Granulocyte # (Auto) 0.01 K/uL (0.00-0.02) Erythrocyte Sedimentation Rate 21 mm/hr (0-21) Prothrombin Time 39.5 SECONDS (9.0-12.0) Prothromb Time International Ratio 3.5 (0.9-1.1) Activated Partial Thromboplast Time 44.6 SECONDS (21.0-31.0) Partial Thromboplastin Ratio 1.7 Urine Color YELLOW Urine Appearance CLEAR (CLEAR) Urine pH 6.5 (4.5-7.5) Urine Specific [place] 1.007 (1.000-1.030) Urine Protein NEG (NEG) Urine Glucose (UA) NEG (NEG) Urine Ketones NEG (NEG) Urine Occult Blood NEG (NEG) Urine Nitrite NEG (NEG) Urine Bilirubin NEG (NEG) Urine Urobilinogen NEG (NEG) Urine Leukocyte Esterase NEG (NEG) Anion Gap 5.0 mmol/L (3-11) Est Creatinine Clear Calc Drug Dose 38.9 ml/min Estimated GFR () 56.1 Estimated GFR (Non- 48.4 BUN/Creatinine Ratio 11.1 (10-20) Calcium Level 9.5 mg/dl (8.5-10.1) Magnesium Level 1.8 mg/dl (1.8-2.4) Total Bilirubin 0.8 mg/dl (0.2-1) Direct Bilirubin 0.2 mg/dl (0-0.2) Aspartate Amino Transf (AST/SGOT) 28 U/L (15-37) Alanine Aminotransferase (ALT/SGPT) 25 U/L (12-78) Alkaline Phosphatase 64 U/L (45-117) Troponin I < 0.015 ng/ml (0-0.045) C-Reactive Protein < 0.29 mg/dl (0-0.29) Total Protein 7.9 gm/dl (6.4-8.2) Albumin 4.5 gm/dl (3.4-5.0) Thyroid Stimulating Hormone (TSH) 2.950 uIu/ml (0.300-4.500) Laboratory results per my review. ECG Indication: other Rate (beats per minute): 68 Rhythm: atrial fibrillation Findings: no ectopy, other (poor R-wave progression) Comparison ECG Date: 08/13/2015 Change: no significant change ED Course 1511: The patient was evaluated in room B12B. A complete history and physical examination were performed. 1532: Upon reevaluation the patient is doing well. 1900: I reassessed the patient at this time. She is feeling better and resting comfortably. I discussed the results and treatment plan with the patient. I answered all pertaining questions that she had. She expressed understanding and verbalized agreement. The patient will be discharged home. Medical Decision Differential diagnosis: Etiologies such as migraine headache, meningitis, sinusitis, CO exposure, ICH, SAH, infection, tumor, headache, sinus thrombosis, arterial dissection, as well as others were entertained. Nursing notes reviewed. The patient is a 76-year-old female who presents to the emergency department for an evaluation of left-sided headache. The patient appears to have very significant arthritis in the cervical spine. I feel that this could be concerning to the patient's condition today. She did not have tenderness over the temporal artery. Her sedimentation rate was not significantly elevated. I discussed the patient's laboratory and radiographic studies with her and her family members. The patient was encouraged to rest and avoid any strenuous activity. She was also encouraged to continue all medications as prescribed. She was also encouraged to follow-up with the primary care physician this week for reevaluation and for possible referral to a neurologist. She was also encouraged return to the emergency department immediately if symptoms change worsen or the need arises. Medication Reconcilliation Current Medication List: was personally reviewed by me Blood Pressure Screening Patient's blood pressure: Elevated blood pressure Blood pressure disposition: Elevated BP felt to be situational Impression Primary Impression: Headache Scribe Attestation The scribe's documentation has been prepared under my direction and personally reviewed by me in its entirety. I confirm that the note above accurately reflects all work, treatment, procedures, and medical decision making performed by me. Departure Information Dispostion Home / Self-Care Referrals Camilo Riojas M.D. (PCP) Forms HOME CARE DOCUMENTATION FORM, IMPORTANT VISIT INFORMATION, WORK / SCHOOL INSTRUCTIONS Patient Instructions Headaches Migraine and Tension, [facility] Additional Instructions Call your family to schedule a follow-up appointment. Rest and avoid any strenuous activity. You may require a follow-up with an provider education specialist to determine if causing her symptoms is coming from the arthritis in your neck. Discussed this with your family doctor. Continue all other medications as prescribed. Problem Qualifiers Primary Impression: Headache Headache type: unspecified Headache chronicity pattern: unspecified pattern Intractability: not intractable Qualified Codes: R51 - Headache
--- NOTE | 2017-05-31 18:14 | DIAGNOSTIC IMAGING REPORT ---
CHEST ONE VIEW PORTABLE CLINICAL HISTORY: Altered mental status. Weakness. COMPARISON STUDY: Chest radiograph August 13, 2015. FINDINGS: Lung volumes are normal. No pneumothorax or pleural effusion is present. There is no consolidation to suggest pneumonia. Linear left midlung opacity suggests atelectasis or scarring. Anterior cervical spine fusion is incidentally noted. Moderate cardiomegaly is noted. There is no evidence of pulmonary edema. IMPRESSION: No acute cardiopulmonary findings. No change in appearance of the chest. Electronically signed by: Clark Gonsalez M.D. 05/31/2017 6:13 PM Dictated Date/Time: 05/31/2017 6:12 PM
[2017-05-31 19:26] VITALS: BP 160/90; PULSE 70; O2SAT 99
== END 2017-05-31 19:27 | disposition home or self-care (01) ==
LOC: C.EDB 14:57
DX: R51 Headache (principal); I48.91 Unspecified atrial fibrillation; Z79.01 Long term (current) use of anticoagulants; M81.0 Age-related osteoporosis without current pathological fracture; M48.02 Spinal stenosis, cervical region; E78.00 Pure hypercholesterolemia, unspecified; I10 Essential (primary) hypertension; E66.9 Obesity, unspecified; Z68.35 Body mass index [BMI] 35.0-35.9, adult; Z96.651 Presence of right artificial knee joint; Z79.82 Long term (current) use of aspirin; Z79.899 Other long term (current) drug therapy

== ENCOUNTER → 2017-06-13 | Outpatient (CLI) | payer OTHER, BC ==
[~2017-06-13] MED LIST changes: +APR/25 PO; -ATEN50TA8 PO; -CHOL1000 PO; +CHOL1CAP13 PO; -HYDR-4715 PO; -POTA-74 PO; +SPIR50TA2 PO; -TYLOTC500 PO
--- NOTE | 2017-06-14 07:58 | MAMMOGRAPHY REPORT ---
BILATERAL DIGITAL SCREENING MAMMOGRAM WITH CAD: 06/13/2017 CLINICAL HISTORY: Routine screening. Patient has no complaints. TECHNIQUE: Bilateral CC and MLO views were obtained. Current study was also evaluated with a Comput er Aided Detection (CAD) system. COMPARISON: Comparison is made to exams dated: 05/12/2016 mammogram, 05/11/2015 mammogram, 05/08/2014 m ammogram, 05/06/2013 mammogram, 05/03/2012 mammogram, and 05/02/2011 mammogram - [facility] enter. BREAST COMPOSITION: There are scattered areas of fibroglandular density in both breasts. FINDINGS: There are benign-appearing rodlike, coarse and rim calcifications scattered bilaterally. N o suspicious mass, architectural distortion or cluster of suspicious microcalcifications is seen. IMPRESSION: ACR BI-RADS CATEGORY 1: NEGATIVE There is no mammographic evidence of malignancy. A 1 year screening mammogram is recommended. The pa tient will receive written notification of the results. Approximately 10% of breast cancers are not detected with mammography. A negative mammographic report should not delay biopsy if a clinically suggestive mass is present. Myriam Bennett M.D. ay/:06/13/2017 16:48:57 Senior Design Engineer: Daily VALENCIA(Osmin)(M), [facility] letter sent: Normal 1/2 BI-RADS Code: ACR BI-RADS Category 1: Negative
== END | disposition home or self-care (01) ==
LOC: C.MAMM 14:27
PROVIDERS: ATTEND Family Medicine
DX: Z12.31 Encounter for screening mammogram for malignant neoplasm of breast (principal)

== ENCOUNTER → 2017-09-21 | Outpatient (CLI) | payer OTHER, BC ==
[~2017-09-21] MED LIST changes: -APR/25 PO; +CIPR-255 PO; +HYDR-4716 PO
[2017-09-21 19:30] LABS: ALBUMIN 4.1 gm/dl (3.4-5.0); BLOOD UREA NITROGEN 27 mg/dl (7-18); CARBON DIOXIDE 27 mmol/L (21-32); CREATININE 1.72 mg/dl (0.60-1.20); GLUCOSE 91 mg/dl (70-99); POTASSIUM 4.4 mmol/L (3.5-5.1); SODIUM 133 mmol/L (136-145)
[2017-09-21 19:31] LABS: PHOSPHORUS 3.6 mg/dl (2.5-4.9)
== END | disposition home or self-care (01) ==
LOC: C.LABPVFM 15:51
PROVIDERS: ATTEND Nurse Practitioner
DX: I10 Essential (primary) hypertension (principal); E78.5 Hyperlipidemia, unspecified

== ENCOUNTER → 2017-10-05 | Outpatient (CLI) | payer OTHER, BC ==
[~2017-10-05] MED LIST changes: -CIPR-255 PO
[2017-10-05 17:44] LABS: ALBUMIN 3.8 gm/dl (3.4-5.0); BLOOD UREA NITROGEN 24 mg/dl (7-18); CARBON DIOXIDE 28 mmol/L (21-32); CREATININE 1.73 mg/dl (0.60-1.20); GLUCOSE 96 mg/dl (70-99); PHOSPHORUS 3.4 mg/dl (2.5-4.9); POTASSIUM 3.9 mmol/L (3.5-5.1); SODIUM 139 mmol/L (136-145)
== END | disposition home or self-care (01) ==
LOC: C.LAB1850 16:07
PROVIDERS: ATTEND Internal Medicine Nephrology
DX: N28.9 Disorder of kidney and ureter, unspecified (principal)

== ENCOUNTER → 2017-10-30 | Outpatient (CLI) | payer OTHER, BC ==
[2017-10-30 15:48] LABS: BLOOD UREA NITROGEN 14 mg/dl (7-18); CARBON DIOXIDE 27 mmol/L (21-32); GLUCOSE 96 mg/dl (70-99); PHOSPHORUS 2.4 mg/dl (2.5-4.9); POTASSIUM 3.9 mmol/L (3.5-5.1); SODIUM 137 mmol/L (136-145)
== END | disposition home or self-care (01) ==
LOC: C.LAB1850 14:24
PROVIDERS: ATTEND Internal Medicine Nephrology
DX: N28.9 Disorder of kidney and ureter, unspecified (principal)

== ENCOUNTER 2017-12-25 14:58 | Emergency (ER) | payer OTHER ==
[~2017-12-25] VITALS: Ht 147.3 cm; Wt 78.5 kg
[2017-12-25 15:11] VITALS: TEMP 36.8; Ht 147.3 cm; Wt 78.5 kg
[2017-12-25 15:29] LABS: BASO % 0.2 %; BASO ABS # 0.01 K/uL (0-0.2); EOS % 3.5 %; EOS ABS # 0.23 K/uL (0-0.5); HEMATOCRIT 40.5 % (37-47); HEMOGLOBIN 13.7 g/dL (12.0-16.0); IG# 0.01 K/uL (0.00-0.02); LYMPH % 21.4 %; LYMPH ABS # 1.42 K/uL (1.2-3.4); MEAN CELL VOLUME 89.8 fL (80-100); MEAN CORPUSCULAR HEMOGLOBIN 30.4 pg (25-34); MEAN CORPUSCULAR HGB CONC 33.8 g/dl (32-36); MEAN PLATELET VOLUME 9.6 fL (7.4-10.4); MONO % 8.6 %; MONO ABS # 0.57 K/uL (0.11-0.59); NEUT % 66.1 %; PLATELET COUNT 210 K/uL (130-400); RED CELL DISTRIBUTION WIDTH SD 42.3 fL (36.4-46.3); WHITE BLOOD COUNT 6.64 K/uL (4.8-10.8)
[2017-12-25 15:48] LABS: CALCIUM 10.2 mg/dl (8.5-10.1); CREATININE 1.28 mg/dl (0.60-1.20)
[2017-12-25 15:51] LABS: TOTAL PROTEIN 7.5 gm/dl (6.4-8.2)
--- NOTE | 2017-12-25 18:31 | EMERGENCY ROOM VISIT NOTE ---
History Report prepared by Singh: Rock Suazo Under the Supervision of: Dr. Scott Hdez M.D. First contact with patient: 18:10 Chief Complaint: FLANK PAIN Stated Complaint: LOWER SIDE PAIN History of Present Illness The patient is a 77 year old female who presents to the Emergency Room with complaints of worsening left lower flank pain that began 1 week ago which she rates as 7/10. The pain was initially mild and flared up on 12/22/2017. She also complains of nausea. The patient states that she has lymphedema and that her legs are not more swollen than baseline. She states that movement worsens her pain. Resting alleviates the pain. She states that she takes a diuretic and Coumadin. History of some renal insufficiency which has been good recently. No recent antibiotics. Has not had colonoscopy. She denies urinary symptoms, rashes, and fever. She denies a history of kidney stones and diverticulitis. Source of History: patient Onset: 1 week ago Position: other (left flank) Symptom Intensity: pain rated as 7/10 Timing: worsening Modifying Factors (Worsening): movement Modifying Factors (Relieving): rest Associated Symptoms: No fevers, No urinary symptoms, No rash Review of Systems See HPI for pertinent positives & negatives. A total of 10 systems reviewed and were otherwise negative. Past Medical & Surgical Medical Problems: (1) A-fib (2) Arthritis (3) Cervical stenosis of spinal canal (4) Edema (5) H/O osteoporosis (6) High cholesterol (7) Hypertension (8) Lumbago (9) Obesity (10) Sciatica (11) Sciatica (12) Spinal stenosis (13) Vertigo Surgical Problems: (1) History of right knee joint replacement (2) Rotator cuff tear Family History FH: lung disease FHx: cancer FHx: heart disease High blood pressure Social History Smoking Status: Never Smoker Alcohol Use: occasionally Marital Status: Housing Status: lives with family Occupation Status: retired Current/Historical Medications Scheduled Aspirin (Aspirin Ec), 81 MG PO QAM Calcium Carbonate-Vitamin D W/ (Caltrate 600 Plus), 1 TAB PO BID Cholecalciferol (D3), 2,000 UNITS PO BID Ciprofloxacin Hcl (Cipro), 500 MG PO BID Gabapentin (Neurontin), 300 MG PO TID Hydralazine HCl (Hydralazine HCl), 25 MG PO BID Magnesium Chloride-Calcium Car (Slow Magnesium Chloride/ 70-117 mg), 1 TAB PO QAM Multiple Vitamins W/ Minerals (Womens Daily Formula), 1 TAB PO QAM Olmesartan/Hctz (Benicar Hct 40/25), 1 TAB PO QAM Simvastatin (Zocor), 20 MG PO QPM Spironolactone (Aldactone), 50 MG PO QPM Warfarin Sodium (Warfarin Sodium), 5 MG PO WK Warfarin Sodium (Warfarin Sodium), 2.5 MG PO [id number] Scheduled PRN Furosemide (Lasix), 20 MG PO QAM PRN for Meclizine Hcl (Meclizine Hcl), 25 MG PO Q8 PRN for Dizziness or Vertigo Allergies Coded Allergies: Acetaminophen (Unverified Allergy, Unknown, hallucinations, 05/31/17) Hydrocodone (Unverified Allergy, Unknown, HALLUCINATIONS, 05/31/17) Oxycodone (Unverified Allergy, Unknown, hallucinations, 05/31/17) Penicillins (Verified Allergy, Unknown, UNKNOWN, 01/25/17) Propoxyphene (Unverified Allergy, Unknown, UNKNOWN, 05/31/17) Physical Exam Vital Signs Date Time Temp Pulse Resp B/P (MAP) Pulse Ox O2 Delivery O2 Flow Rate FiO2 12/25/17 20:34 65 20 154/82 98 Room Air 12/25/17 19:34 76 18 164/88 98 Room Air 12/25/17 15:11 36.8 81 18 154/77 97 Room Air Physical Exam GENERAL: Patient is uncomfortable appearing and in mild distress. EYES: No scleral icterus, unremarkable pupils. ENT: Mucous membranes moist, no nasal congestion. NECK: No masses appreciated, no meningismus, trachea is midline. RESPIRATORY: No dyspnea. Clear to auscultation and equal bilaterally. No wheeze , no rhonchi. CARDIOVASCULAR: Regular rate and rhythm. No murmurs, rubs, gallops appreciated. GASTROINTESTINAL: Left lower quadrant tenderness to palpation. Abdomen soft, no peritonitis. Bowel sounds positive. No masses appreciated. BACK: Left CVA tenderness to palpation. No midline tenderness. Mild left flank tenderness to palpation. EXTREMITIES: Bilateral lymphedema. Normal motion all extremities, no cyanosis. NEUROLOGIC: Alert and oriented, no acute motor or sensory deficits, no focal weakness, cranial nerves grossly intact. SKIN: No rash, no jaundice, no diaphoresis. Medical Decision & Procedures ER Provider Diagnostic Interpretation: Radiology results and stated below per my review and radiologist interpretation: CT SCAN OF THE ABDOMEN AND PELVIS WITH IV CONTRAST CLINICAL HISTORY: Left flank pain of one week's duration. COMPARISON STUDY: Renal ultrasound dated 12/22/2016. TECHNIQUE: Following the IV administration of 90 cc of Optiray 320, CT scan of the abdomen and pelvis is performed from the lung bases to the proximal femora. Images are reviewed in the axial, sagittal, and coronal planes. There was an IV malfunction during the examination. IV contrast was otherwise administered without complication. A dose lowering technique was utilized adhering to the principles of ALARA. The examination is degraded by streak artifact from the patient's arms which could not be elevated above the abdomen. CT DOSE: 924.11 mGy.cm FINDINGS: Lung bases: The heart is enlarged and without pericardial effusion. The coronary arteries and aortic valve leaflets are densely calcified. The lung bases are clear. Liver: The contrast-enhanced liver is normal in size, contour, and attenuation. There is no intrahepatic biliary ductal dilatation. The hepatic veins and portal veins are patent. Gallbladder: Unremarkable. Spleen: Normal in size and attenuation. Pancreas: Unremarkable. Adrenal glands: Unremarkable. Kidneys: The contrast enhanced kidneys are atrophic and without hydronephrosis. The kidneys enhance symmetrically. Scattered subcentimeter cortical hypodensities likely represent cysts but are too small for definitive characterization. Abdominal vasculature: The abdominal aorta is normal in course and caliber noting moderate to advanced atherosclerotic calcification. Bowel: A duodenal diverticulum is incidentally noted. There is advanced colonic diverticulosis without CT evidence of acute diverticulitis. No bowel obstruction is identified. The appendix is not identified and reported surgically absent. Peritoneum: There is no intraperitoneal free air or abdominal ascites. Lymphadenopathy: None. Pelvic viscera: The bladder is normal as visualized. The uterus and adnexa are normal as imaged. Skeletal structures: The skeletal structures are osteopenic. No lytic or blastic lesions are seen. There is moderate to advanced lumbosacral spondylosis. Chronic appearing deformity is noted in the left iliac wing. IMPRESSION: 1. There are no acute infectious or inflammatory findings in the abdomen or pelvis. 2. Mild cardiomegaly. 3. Advanced colonic diverticulosis without CT evidence of acute diverticulitis. 4. Additional findings as above. Electronically signed by: Fransisco Vega M.D. 12/25/2017 7:56 PM Dictated Date/Time: 12/25/2017 7:50 PM Laboratory Results 12/25/17 15:20 Red Blood Count 4.51, Mean Corpuscular Volume 89.8, Mean Corpuscular Hemoglobin 30.4, Mean Corpuscular Hemoglobin Concent 33.8, Mean Platelet Volume 9.6, Neutrophils (%) (Auto) 66.1, Lymphocytes (%) (Auto) 21.4, Monocytes (%) (Auto) 8.6, Eosinophils (%) (Auto) 3.5, Basophils (%) (Auto) 0.2, Neutrophils # (Auto) 4.40, Lymphocytes # (Auto) 1.42, Monocytes # (Auto) 0.57, Eosinophils # (Auto) 0.23, Basophils # (Auto) 0.01 12/25/17 15:20 Test 12/25/17 00:00 12/25/17 15:20 12/25/17 19:29 Prothrombin Time 22.8 SECONDS (9.0-12.0) Prothromb Time International Ratio 2.2 (0.9-1.1) White Blood Count 6.64 K/uL (4.8-10.8) Red Blood Count 4.51 M/uL (4.2-5.4) Hemoglobin 13.7 g/dL (12.0-16.0) Hematocrit 40.5 % (37-47) Mean Corpuscular Volume 89.8 fL (80-100) Mean Corpuscular Hemoglobin 30.4 pg (25-34) Mean Corpuscular Hemoglobin Concent 33.8 g/dl (32-36) Platelet Count 210 K/uL (130-400) Mean Platelet Volume 9.6 fL (7.4-10.4) Neutrophils (%) (Auto) 66.1 % Lymphocytes (%) (Auto) 21.4 % Monocytes (%) (Auto) 8.6 % Eosinophils (%) (Auto) 3.5 % Basophils (%) (Auto) 0.2 % Neutrophils # (Auto) 4.40 K/uL (1.4-6.5) Lymphocytes # (Auto) 1.42 K/uL (1.2-3.4) Monocytes # (Auto) 0.57 K/uL (0.11-0.59) Eosinophils # (Auto) 0.23 K/uL (0-0.5) Basophils # (Auto) 0.01 K/uL (0-0.2) RDW Standard Deviation 42.3 fL (36.4-46.3) RDW Coefficient of Variation 13.0 % (11.5-14.5) Immature Granulocyte % (Auto) 0.2 % Immature Granulocyte # (Auto) 0.01 K/uL (0.00-0.02) Anion Gap 8.0 mmol/L (3-11) Est Creatinine Clear Calc Drug Dose 32.0 ml/min Estimated GFR () 46.4 Estimated GFR (Non- 40.0 BUN/Creatinine Ratio 8.4 (10-20) Calcium Level 10.2 mg/dl (8.5-10.1) Total Bilirubin 0.7 mg/dl (0.2-1) Aspartate Amino Transf (AST/SGOT) 25 U/L (15-37) Alanine Aminotransferase (ALT/SGPT) 26 U/L (12-78) Alkaline Phosphatase 62 U/L (45-117) Total Protein 7.5 gm/dl (6.4-8.2) Albumin 4.0 gm/dl (3.4-5.0) Globulin 3.5 gm/dl (2.5-4.0) Albumin/Globulin Ratio 1.1 (0.9-2) Urine Color YELLOW Urine Appearance CLEAR (CLEAR) Urine pH 7.0 (4.5-7.5) Urine Specific [place] 1.018 (1.000-1.030) Urine Protein NEG (NEG) Urine Glucose (UA) NEG (NEG) Urine Ketones NEG (NEG) Urine Occult Blood NEG (NEG) Urine Nitrite NEG (NEG) Urine Bilirubin NEG (NEG) Urine Urobilinogen NEG (NEG) Urine Leukocyte Esterase TRACE (NEG) Urine WBC (Auto) 1-5 /hpf (0-5) Urine RBC (Auto) 0-4 /hpf (0-4) Urine Hyaline Casts (Auto) 0 /lpf (0-5) Urine Epithelial Cells (Auto) 0-5 /lpf (0-5) Urine Bacteria (Auto) NEG (NEG) Laboratory results as reviewed by me. Medications Administered Medications (Trade) Dose Ordered Sig/Kee Route Start Time Stop Time Status Last Admin Dose Admin Ciprofloxacin (Cipro Tab) 500 mg NOW STAT PO 12/25/17 20:27 12/25/17 20:28 DC 12/25/17 20:35 500 MG ED Course 1809: The patient was evaluated in room C2. A complete history and physical exam was performed. 2015: Reevaluated the patient. Discussed results and discharge instructions: She verbalized understanding and agreement. The patient is ready for discharge. Medical Decision Differential: Renal Colic, Pyelonephritis, Hydronephrosis, Appendicitis, Diverticulitis, Retroperitoneal Bleed/Infection, Aortic Pathology, MSK, Neurologic Pathology, amongst other pathologies entertained. 77 yr old female with left flank/LLQ abdominal pain the last few days worse with movement. No rash nor acute peritonitis. No neuro deficits. CT with extensive diverticulosis without clear evidence itis, and otherwise no acute findings but does have extensive arthritic changes. Labs look OK and UA clean. With exam, onset I suspect this is diverticulitis and less likely MSK related vs spinal issue. I think it is reasonable to treat with some minor abx but as not overtly infected will try to avoid doing dual abx therapy at this time. Aware that she is to follow up with her PCP to discuss further evaluation as well as to discuss having colonoscopy. No fevers, vomiting, nor other issues right now. She seems comfortable with this plan. Medication Reconcilliation Current Medication List: was personally reviewed by me Blood Pressure Screening Patient's blood pressure: Elevated blood pressure Blood pressure disposition: Elevated BP felt to be situational Impression Primary Impression: Left flank pain Additional Impressions: Lumbar and sacral arthritis Diverticulosis of colon Scribe Attestation The scribe's documentation has been prepared under my direction and personally reviewed by me in its entirety. I confirm that the note above accurately reflects all work, treatment, procedures, and medical decision making performed by me. Departure Information Dispostion Home / Self-Care Prescriptions Ciprofloxacin Hcl (CIPRO) 500 Mg Tab 500 MG PO BID, #14 TAB Prov: Scott Hdez M.D. 12/25/17 Referrals Lillian Yi C.R.N.P (PCP) Patient Instructions [facility] Additional Instructions It is not clear exactly the cause of your symptoms, but this may be due to diverticulitis. We will start a course of antibiotics in case this is what is causing your pain. It may be there is another cause, thus if you have worsening nausea, vomiting, fevers, pain or other concerns return for further evaluation. Please follow up with your primary provider for further evaluation. Please discuss having Colonoscopy with them as well. Coumadin levels can increase with Antibiotics thus all your care team to know of this. Problem Qualifiers
[2017-12-25 19:14] LABS: INR 2.2 (0.9-1.1)
[2017-12-25] MEDS ORDERED: OPTIRAY 320 IV PRN (19:30)
--- NOTE | 2017-12-25 19:57 | DIAGNOSTIC IMAGING REPORT ---
CT SCAN OF THE ABDOMEN AND PELVIS WITH IV CONTRAST CLINICAL HISTORY: Left flank pain of one week's duration. COMPARISON STUDY: Renal ultrasound dated 12/22/2016. TECHNIQUE: Following the IV administration of 90 cc of Optiray 320, CT scan of the abdomen and pelvis is performed from the lung bases to the proximal femora. Images are reviewed in the axial, sagittal, and coronal planes. There was an IV malfunction during the examination. IV contrast was otherwise administered without complication. A dose lowering technique was utilized adhering to the principles of ALARA. The examination is degraded by streak artifact from the patient's arms which could not be elevated above the abdomen. CT DOSE: 924.11 mGy.cm FINDINGS: Lung bases: The heart is enlarged and without pericardial effusion. The coronary arteries and aortic valve leaflets are densely calcified. The lung bases are clear. Liver: The contrast-enhanced liver is normal in size, contour, and attenuation. There is no intrahepatic biliary ductal dilatation. The hepatic veins and portal veins are patent. Gallbladder: Unremarkable. Spleen: Normal in size and attenuation. Pancreas: Unremarkable. Adrenal glands: Unremarkable. Kidneys: The contrast enhanced kidneys are atrophic and without hydronephrosis. The kidneys enhance symmetrically. Scattered subcentimeter cortical hypodensities likely represent cysts but are too small for definitive characterization. Abdominal vasculature: The abdominal aorta is normal in course and caliber noting moderate to advanced atherosclerotic calcification. Bowel: A duodenal diverticulum is incidentally noted. There is advanced colonic diverticulosis without CT evidence of acute diverticulitis. No bowel obstruction is identified. The appendix is not identified and reported surgically absent. Peritoneum: There is no intraperitoneal free air or abdominal ascites. Lymphadenopathy: None. Pelvic viscera: The bladder is normal as visualized. The uterus and adnexa are normal as imaged. Skeletal structures: The skeletal structures are osteopenic. No lytic or blastic lesions are seen. There is moderate to advanced lumbosacral spondylosis. Chronic appearing deformity is noted in the left iliac wing. IMPRESSION: 1. There are no acute infectious or inflammatory findings in the abdomen or pelvis. 2. Mild cardiomegaly. 3. Advanced colonic diverticulosis without CT evidence of acute diverticulitis. 4. Additional findings as above. Electronically signed by: Fransisco Vega M.D. 12/25/2017 7:56 PM Dictated Date/Time: 12/25/2017 7:50 PM
[2017-12-25] MEDS ORDERED: CIPR-255 PO (20:27)
[2017-12-25] MEDS ORDERED: CIPROFLOXACIN 500 MG TAB PO STA (20:27)
[2017-12-25 20:34] VITALS: BP 154/82; PULSE 65; O2SAT 98
== END 2017-12-25 20:46 | disposition home or self-care (01) ==
LOC: C.EDB 15:00 → C.EDC 20:46
DX: R10.32 Left lower quadrant pain (principal); M46.96 Unspecified inflammatory spondylopathy, lumbar region; K57.90 Diverticulosis of intestine, part unspecified, without perforation or abscess without bleeding; Z79.01 Long term (current) use of anticoagulants; I48.91 Unspecified atrial fibrillation; I10 Essential (primary) hypertension; E78.00 Pure hypercholesterolemia, unspecified; E66.9 Obesity, unspecified; Z96.651 Presence of right artificial knee joint; Z80.9 Family history of malignant neoplasm, unspecified; Z79.82 Long term (current) use of aspirin; Z79.899 Other long term (current) drug therapy; Z88.0 Allergy status to penicillin; Z88.5 Allergy status to narcotic agent; Z88.8 Allergy status to other drugs, medicaments and biological substances

== ENCOUNTER → 2018-01-09 | Outpatient (CLI) | payer OTHER ==
[~2018-01-09] MED LIST changes: +CIPR-255 PO
--- NOTE | 2018-01-09 15:54 | DIAGNOSTIC IMAGING REPORT ---
AP PELVIS AND LEFT HIP 3 VIEWS CLINICAL HISTORY: Left hip pain COMPARISON STUDY: No previous studies for comparison. FINDINGS: No acute fractures are visualized. The joint space appears well-preserved for age. There is spurring arising to the anterior superior iliac spine. General changes are present within the lumbar spine. IMPRESSION: 1. No acute fractures 2. No destructive lesions identified 3. Iliac spine spurring Electronically signed by: Rodrigo Doyle M.D. 01/09/2018 3:53 PM Dictated Date/Time: 01/09/2018 3:51 PM
== END | disposition home or self-care (01) ==
LOC: C.RADPV 15:24
PROVIDERS: ATTEND Nurse Practitioner
DX: M25.552 Pain in left hip (principal); M76.22 Iliac crest spur, left hip

== ENCOUNTER 2020-03-25 18:15 | Observation (INO) ==
--- NOTE | 2020-03-25 19:02 | Emergency Department Note ---
Impression & Plan Substernal chest pain, Weakness ED Provider Note NAME: LEENA CERON AGE: 79 SEX: F ARRIVES VIA: Ambulance INFORMANT: [Patient] ED PROVIDER(S): Luis F Jaramillo MD CHIEF COMPLAINT: Chest pain PLAN: Disposition: Admitted Condition: [Good] MEDICAL DECISION MAKING: Patient presented with complaints of chest and back pain. Her ECG was negative. Her chest pain was resolved with nitro provided by EMS. Troponin was unremarkable. The patient did have mild leukocytosis on CBC. She was therapeutic on her INR. Her chemistries and LFTs were unremarkable. Urinalysis was concerning for possible infection. Patient was given IV Rocephin. Further management in the hospital will be necessary I did discuss this with the patient and her daughter. They were in agreement. Consultation was made with Dr. Mccartney of internal medicine. Patient was evaluated in the ER for further management Triage Nursing notes reviewed and agree them. [Additional history obtained from] patient's daughter Vital Signs: reviewed and remarkable for [no significant abnormalities] Differential diagnosis: Cardiac ischemia, UTI, aortic dissection, pulmonary embolism, pneumothorax, pneumonia, pericarditis, myocarditis, esophageal rupture, GERD, cholecystitis, pancreatitis, musculoskeletal, as well as other pathologies. ER treatment provided: IV Rocephin Diagnostics interpreted by me: ECG: Rate:68 Rhythm:Afib [place]:Normal QRS:Normal ST segements:No elevation or depression Other:No pac or PVC Cardiac Monitoring: Cardiac monitoring ordered by me: The patient was placed on continuous cardiac monitoring and observed. It revealed atrial fibrillation at 71 beats per minute without ectopy or evidence of dysrhythmia. Laboratory studies: [See below] mild leukocytosis on CBC. Chemistry panel unremarkable. Imaging studies: Chest x-ray. Findings: A chest x-ray was performed and revealed no pneumothorax, effusion, infiltrate, pulmonary edema, free air under the diaphragm, or wide mediastinum. Impression: No acute disease. Consultation(s): [facility] internal medicine HPI: The patient is a 79 year old female who presents to the Emergency Room with complaints of chest pain. This started this morning and is now resolved. The patient also notes the following associated symptoms, weakness, back pain, fatigue, and nausea. The patient has been given zofran and 2 NTG by ems for relieving factors. Current pain is rated as 0/10. She also noted dizziness, which felt like her vertigo and took meclizine OIL DRILLER and that resolved. No loss of taste or smell. No COVID contacts. Pt denies LOC, headache, fevers, chills, diaphoresis, visual changes, neck pain, breathing difficulties, vomiting, abdominal pain, melena, hematochezia, urinary symptoms, numbness,, lymphadenopathy, rash, or other complaints. ROS: See above HPI for pertinent positives & negatives. A total of [10] systems reviewed and were otherwise negative. PAST MEDICAL HISTORY:[See Below] Afib, lymphedema PAST SURGICAL HISTORY:[See Below] FAMILY HISTORY:[See Below] SOCIAL HISTORY:[See Below] Lives alone HOME MEDICATIONS:[See Below] ALLERGIES:[See Below] Reviewed in EMR VITALS:[See Below] PHYSICAL EXAMINATION: GENERAL: Awake, alert, well-appearing, in no distress HENT: Normocephalic, atraumatic. Oropharynx unremarkable. EYES: Normal conjunctiva. Sclera non-icteric. NECK: Inspection normal. Non-tender. Supple. No nuchal rigidity. FROM. No masses. RESPIRATORY: Clear to auscultation. No wheezes. No rales. Normal respiratory effort. CARDIAC: Normal rate. Normal rhythm. No murmurs. No rubs. Extremities warm and well perfused. Pulses equal. No JVD. GI: Soft, non-distended. No tenderness to palpation. No rebound or guarding. No masses. RECTAL: Deferred. MUSCULOSKELETAL: Atraumatic. Chest examination reveals no tenderness. The back is symmetrical on inspection without obvious abnormality. There is no CVA te nderness to palpation. No joint edema. LOWER EXTREMITIES: Calves are equal size bilaterally and non-tender. 2+ edema. No discoloration. NEURO: Normal sensorium. No sensory or motor deficits noted. SKIN: No rash or jaundice noted. ED COURSE: [Critical Care:] [None] Luis F Jaramillo MD Past Med/Surg History Social History Preferred Language: Danish Communication Ability: Effective Head Wood Grinder Required: No Beliefs That Will Affect Care: None marital status: / Current Living Situation: Family Current Living Situation Comment: dtr antoine current occupational status: retired Feels Safe at Home: No Smoking Status: Never smoker Hx Alcohol Use: No Hx Substance Use: No Dental Care, Regularly: No Seatbelt Use: always Allergies Allergies Allergy/AdvReac Type Severity Reaction Status Date / Time Penicillins Allergy Unknown UNKNOWN Verified 03/04/20 14:04 propoxyphene Allergy Unknown UNKNOWN Unverified 03/04/20 14:04 acetaminophen AdvReac Unknown hallucinati Unverified 03/26/20 02:04 ons hydrocodone AdvReac Unknown HALLUCINATI Unverified 03/26/20 02:04 ONS oxycodone AdvReac Unknown hallucinati Unverified 03/26/20 02:04 ons Home Meds Home Medications Medication Instructions Recorded Confirmed furosemide 40 mg tablet 40 mg PO DAILY PRN #90 tab 05/09/19 03/25/20 multivitamin 1 tab PO DAILY 05/09/19 03/25/20 meclizine 25 mg tablet 25 mg PO Q8H PRN tab 06/13/19 03/25/20 metoprolol succinate 25 mg 25 mg PO DAILY 06/13/19 03/25/20 tablet,extended release 24 hr aspirin [Aspir-81] 81 mg PO DAILY 03/25/20 03/25/20 cholecalciferol (vitamin D3) 25 mcg PO AMPM 03/25/20 03/25/20 hydralazine 25 mg PO BID 03/25/20 03/25/20 oxybutynin chloride 5 mg PO BID 03/25/20 03/25/20 warfarin 2.5 mg PO [id number] 03/25/20 03/25/20 warfarin 5 mg PO WK 03/25/20 03/25/20 Previous Rx's Medication Instructions Recorded simvastatin 20 mg tablet 20 mg PO QPM #90 tab 04/23/19 gabapentin 300 mg capsule 300 mg PO TID #270 cap 06/10/19 calcium carbonate 600 mg(1,500 1 tab PO BID #60 tab 07/25/19 mg)-vitamin D3 800 unit chewable tablet magnesium oxide 400 mg PO DAILY #30 cap 07/25/19 Results & Data (ED) Vital Signs Vital Signs - 24 hr 03/25/20 18:40 03/25/20 18:47 03/25/20 20:02 Temperature 37.2 C Temperature Source Oral Pulse Rate 68 Pulse Rate [Apical] 81 Respiratory Rate 22 22 Blood Pressure 139/80 Blood Pressure [Right Arm] 185/81 H Blood Pressure Mean 99 Blood Pressure Mean [Right Arm] 115 Pulse Oximetry 92 96 Oxygen Delivery Method Room Air Room Air Sepsis Recent Fever Within 48 Hours Yes Sepsis Action Taken by Nursing No Action Required 03/25/20 21:18 03/25/20 21:50 Temperature Temperature Source Pulse Rate Pulse Rate [Apical] 62 55 L Respiratory Rate 22 20 Blood Pressure Blood Pressure [Right Arm] 132/71 131/65 Blood Pressure Mean Blood Pressure Mean [Right Arm] 91 87 Pulse Oximetry 94 93 Oxygen Delivery Method Room Air Room Air Sepsis Recent Fever Within 48 Hours Sepsis Action Taken by Nursing Laboratory Data Result diagrams: 03/25/20 19:51 03/25/20 19:51 Lab Results 03/25/20 03/25/20 03/25/20 Range/Units 19:51 19:51 19:51 WBC 11.04 H (4.8-10.8) K/uL RBC 4.57 (4.2-5.4) M/uL Hgb 13.4 (12.0-16.0) g/dL Hct 41.5 (37-47) % MCV 90.8 (80-100) fL MCH 29.3 (25-34) pg MCHC 32.3 (32-36) g/dL RDW Std Deviation 48.0 H (36.4-46.3) fL RDW Coeff of Chris 14.4 (11.5-14.5) % Plt Count 157 (130-400) K/uL MPV 9.7 (7.4-10.4) fL Immature Gran % (Auto) 0.2 % Neut % (Auto) 81.3 % Lymph % (Auto) 9.8 % [place] % (Auto) 7.3 % Eos % (Auto) 1.2 % Baso % (Auto) 0.2 % Neut # (Auto) 8.98 H (1.4-6.5) K/uL Lymph # (Auto) 1.08 L (1.2-3.4) K/uL [place] # (Auto) 0.81 H (0.11-0.59) K/uL Eos # (Auto) 0.13 (0-0.5) K/uL Baso # (Auto) 0.02 (0-0.2) K/uL Immature Gran # (Auto) 0.02 (0.00-0.02) K/uL PT 19.3 H (9.0-12.0) Seconds INR 1.9 H (0.9-1.1) APTT 37.7 H (21.0-31.0) Seconds PTT Ratio 1.4 Sodium 136 (136-145) mmol/L Potassium 3.6 (3.5-5.1) mmol/L Chloride 100 (98-107) mmol/L Carbon Dioxide 32 (21-32) mmol/L Anion Gap 4.0 (3-11) BUN 16 (7-18) mg/dl Creatinine 1.05 (0.6-1.2) mg/dl Est Cr Clr Drug Dosing 37.1 ml/min Est GFR ( Amer) 58.1 Est GFR (Non-Af Amer) 50.1 BUN/Creatinine Ratio 15.2 (10-20) Glucose 123 H (70-99) mg/dl Calcium 8.9 (8.5-10.1) mg/dl Magnesium 2.0 (1.8-2.4) mg/dl Total Bilirubin 1.1 H (0.2-1) mg/dl AST 14 L (15-37) U/L ALT 18 (12-78) U/L Alkaline Phosphatase 61 (45-117) U/L Troponin I < 0.015 (0-0.045) ng/ml Total Protein 6.8 (6.4-8.2) gm/dl Albumin 3.5 (3.4-5.0) gm/dl Globulin 3.3 (2.5-4.0) gm/dl Albumin/Globulin Ratio 1.1 (0.9-2) TSH 0.854 (0.300-4.500) uIu/ml Urine Color Urine Appearance (Clear) Urine pH (4.5-7.5) Ur Specific [place] (1.000-1.030) Urine Protein (Negative) Urine Glucose (UA) (Negative) Urine Ketones (Negative) Urine Blood (Negative) Urine Nitrite (Negative) Urine Bilirubin (Negative) Urine Urobilinogen (Negative) Ur Leukocyte Esterase (Negative) Urine WBC (Auto) (0-5) /hpf Urine RBC (Auto) (0-4) /hpf U Hyaline Cast (Auto) (0-5) /lpf U Epithel Cells (Auto) (0-5) /lpf Urine Bacteria (Auto) (Negative) COVID-19 PCR (Negative) 03/25/20 03/25/20 Range/Units 20:04 21:58 WBC (4.8-10.8) K/uL RBC (4.2-5.4) M/uL Hgb (12.0-16.0) g/dL Hct (37-47) % MCV (80-100) fL MCH (25-34) pg MCHC (32-36) g/dL RDW Std Deviation (36.4-46.3) fL RDW Coeff of Chris (11.5-14.5) % Plt Count (130-400) K/uL MPV (7.4-10.4) fL Immature Gran % (Auto) % Neut % (Auto) % Lymph % (Auto) % [place] % (Auto) % Eos % (Auto) % Baso % (Auto) % Neut # (Auto) (1.4-6.5) K/uL Lymph # (Auto) (1.2-3.4) K/uL [place] # (Auto) (0.11-0.59) K/uL Eos # (Auto) (0-0.5) K/uL Baso # (Auto) (0-0.2) K/uL Immature Gran # (Auto) (0.00-0.02) K/uL PT (9.0-12.0) Seconds INR (0.9-1.1) APTT (21.0-31.0) Seconds PTT Ratio Sodium (136-145) mmol/L Potassium (3.5-5.1) mmol/L Chloride (98-107) mmol/L Carbon Dioxide (21-32) mmol/L Anion Gap (3-11) BUN (7-18) mg/dl Creatinine (0.6-1.2) mg/dl Est Cr Clr Drug Dosing ml/min Est GFR ( Amer) Est GFR (Non-Af Amer) BUN/Creatinine Ratio (10-20) Glucose (70-99) mg/dl Calcium (8.5-10.1) mg/dl Magnesium (1.8-2.4) mg/dl Total Bilirubin (0.2-1) mg/dl AST (15-37) U/L ALT (12-78) U/L Alkaline Phosphatase (45-117) U/L Troponin I (0-0.045) ng/ml Total Protein (6.4-8.2) gm/dl Albumin (3.4-5.0) gm/dl Globulin (2.5-4.0) gm/dl Albumin/Globulin Ratio (0.9-2) TSH (0.300-4.500) uIu/ml Urine Color Dark Yellow Urine Appearance Clear (Clear) Urine pH 8.5 H (4.5-7.5) Ur Specific [place] 1.019 (1.000-1.030) Urine Protein Negative (Negative) Urine Glucose (UA) Negative (Negative) Urine Ketones Negative (Negative) Urine Blood Negative (Negative) Urine Nitrite Negative (Negative) Urine Bilirubin Negative (Negative) Urine Urobilinogen Negative (Negative) Ur Leukocyte Esterase 2+ H (Negative) Urine WBC (Auto) 10-30 H (0-5) /hpf Urine RBC (Auto) 5-10 H (0-4) /hpf U Hyaline Cast (Auto) 0 (0-5) /lpf U Epithel Cells (Auto) 10-20 H (0-5) /lpf Urine Bacteria (Auto) Negative (Negative) COVID-19 PCR NEGATIVE (Negative) Administered Medications Discontinued Medications Ceftriaxone Sodium (Rocephin) 1,000 mg in 50 mls @ 100 mls/hr IV NOW STA Stop: 03/25/20 21:35 Last Infusion: 03/25/20 21:50 Dose: 0 mls/hr Documented by: [id number] Admin: 03/25/20 21:19 Dose: 100 mls/hr Documented by: [id number] Discharge Plan Visit Data *Final* Discharge Date/Time: 03/26/20 01:31 Chief Complaint: Leg Weakness, Bilateral Stated Complaint: WEAKNESS, DIFF AMBULATING CHEST & BACK TIGHTNESS ED Provider: Luis F Jaramillo Discharge Problem: Substernal chest pain, Weakness Patient Disposition: Admitted As Inpatient Discharge Instructions Interventions: ED Discharge Assessment Last Done: 03/26/20 01:31
--- NOTE | 2020-03-25 19:47 | XRay Report ---
XR chest 1V portable HISTORY: 79 years-old Female weakness acute weakness COMPARISON: Chest radiograph 05/31/2017 TECHNIQUE: Portable AP view of the chest FINDINGS: Cardiac silhouette is enlarged. Aortic valvular endograft. Calcified plaque of the thoracic aortic ar ch. Mitral annular calcifications. Linear subsegmental scarring of the lateral left lung base. No pne umothorax, pleural effusion, overt pulmonary edema or airspace consolidation typical for pneumonia. D egenerative changes of the shoulders and spine. Chronic loose body of the right subscapularis recess. IMPRESSION: Cardiomegaly without acute process. ACT 112: Negative or not required by law. The above report was generated using voice recognition software. It may contain grammatical, syntax o r spelling errors. Electronically signed by: Keaton Spicer M.D. 03/25/2020 7:46 PM
[2020-03-25 20:04] LABS: Basophils # (auto) 0.02 K/uL (0-0.2); Basophils % (auto) 0.2 %; Eosinophils # (auto) 0.13 K/uL (0-0.5); Eosinophils % (auto) 1.2 %; Hematocrit (blood only) 41.5 % (37-47); Hemoglobin 13.4 g/dL (12.0-16.0); Immature Granulocytes # (auto) 0.02 K/uL (0.00-0.02); Immature Granulocytes % (auto) 0.2 %; Lymphocytes # (auto) 1.08 K/uL (1.2-3.4); Lymphocytes % (auto) 9.8 %; Mean Corpuscular Hemoglobin 29.3 pg (25-34); Mean Corpuscular Hgb Conc 32.3 g/dL (32-36); Mean Corpuscular Volume 90.8 fL (80-100); Mean Platelet Volume 9.7 fL (7.4-10.4); Monocytes # (auto) 0.81 K/uL (0.11-0.59); Monocytes % (auto) 7.3 %; Neutrophils # (auto) 8.98 K/uL (1.4-6.5); Neutrophils % (auto) 81.3 %; Platelet Count 157 K/uL (130-400); RDW Coefficient of Variation 14.4 % (11.5-14.5); Red Blood Count 4.57 M/uL (4.2-5.4); White Blood Count 11.04 K/uL (4.8-10.8)
[2020-03-25 20:12] LABS: INR 1.9 (0.9-1.1); Partial Thromboplastin Ratio 1.4; Partial Thromboplastin Time 37.7 Seconds (21.0-31.0); Prothrombin Time 19.3 Seconds (9.0-12.0)
[2020-03-25 20:14] LABS: Appearance Urine Clear (Clear); Bacteria Urine Automated Negative (Negative); Bilirubin Urine Negative (Negative); Blood Urine Negative (Negative); Cast Urine Automated 0 /lpf (0-5); Color Urine Dark Yellow; Glucose Urine UA Negative (Negative); Ketones Urine Negative (Negative); Leukocyte Esterase Urine 2+ (Negative); Nitrite Urine Negative (Negative); Specific Gravity Urine 1.019 (1.000-1.030); Urobilinogen Urine Negative (Negative); pH Urine 8.5 (4.5-7.5)
[2020-03-25 20:17] LABS: Protein Urine Negative (Negative); Sulfosalicylic Acid Urine Negative (Negative)
[2020-03-25 20:20] LABS: Alanine Aminotransferase 18 U/L (12-78); Albumin Level 3.5 gm/dl (3.4-5.0); Aspartate Aminotransferase 14 U/L (15-37); BUN Creatinine Ratio 15.2 (10-20); Blood Urea Nitrogen 16 mg/dl (7-18); Calcium 8.9 mg/dl (8.5-10.1); Carbon Dioxide 32 mmol/L (21-32); Chloride 100 mmol/L (98-107); Creatinine Clr Calc Pharmacy 37.1 ml/min; Est GFR (African American) 58.1; Est GFR (Non-African American) 50.1; Glucose 123 mg/dl (70-99); Potassium 3.6 mmol/L (3.5-5.1); Sodium 136 mmol/L (136-145)
[2020-03-25 20:30] LABS: Albumin Globulin Ratio 1.1 (0.9-2); Alkaline Phosphatase 61 U/L (45-117); Bilirubin,Total 1.1 mg/dl (0.2-1); Globulin 3.3 gm/dl (2.5-4.0); Thyroid Stimulating Hormone 0.854 uIu/ml (0.300-4.500); Total Protein 6.8 gm/dl (6.4-8.2); Troponin I < 0.015 ng/ml (0-0.045)
[2020-03-25] MEDS ORDERED: cefTRIAXone SODIUM 1,000 MG/50 ML BAG IV STA (21:06)
[2020-03-26] MEDS ORDERED: ONDANSETRON INJ 2 MG/ML 2 ML VIAL IV PRN (02:00)
[2020-03-26] MEDS ORDERED: NITROGLYCERIN SL 0.4 MG/TAB TAB SL PRN (02:00)
[2020-03-26] MEDS ORDERED: MECLIZINE HCL 25 MG TAB PO PRN (02:06)
--- NOTE | 2020-03-26 03:57 | History & Physical Report ---
Date of Service March 25, 2020 Assessment & Plan (1) Substernal chest pain: EKG with no ischemic changes, troponin unremarkable -Observation with telemetry monitoring -Trend troponin -Continue ASA 81mg po daily -Continue Metoprolol 25mg po daily -Continue Simvastatin 20mg po daily Present on Admission?: Yes (2) Weakness: Etiology unclear. Patient is afebrile, HD stable, no obvious source of infection, COVID-19 negative -Continue to monitor for sourse of infection -Follow cultures Present on Admission?: Yes (3) A-fib: Rate controlled, patient anticoagulated on Warfarin -Continue Metoprolol -Continue Coumadin - monitor INR Present on Admission?: Yes (4) Malignant essential hypertension: Blood pressure stable at present -Continue Metoprolol -Continue Hydralazine [place] -Continue to monitor Present on Admission?: Yes Admission and Anticipated Discharge Date Admission Date: March 25, 2020 Anticipated date of discharge: 03/26/20 History of Present Illness Chief Complaint: weakness, fatigue, nasuea Primary Care Provider: JENNFIER Mock Ale Rascon is an 79yo C female with history of AF. She was brought in by ambulance to [facility] this evening with complaint of weakness and fatigue as well as chest and back discomfort. The CP started this AM and resolved with Nitro Patient is quite fatigued and does not provide much history. She was administered Nitro which improved her chest pain. No additional complaints at this time. No known Covid-19 positive contacts. She denies recent travel, sick contacts. Allergies Allergy/AdvReac Type Severity Reaction Status Date / Time Penicillins Allergy Unknown UNKNOWN Verified 03/04/20 14:04 propoxyphene Allergy Unknown UNKNOWN Unverified 03/04/20 14:04 acetaminophen AdvReac Unknown hallucinati Unverified 03/26/20 02:04 ons hydrocodone AdvReac Unknown HALLUCINATI Unverified 03/26/20 02:04 ONS oxycodone AdvReac Unknown hallucinati Unverified 03/26/20 02:04 ons Home Medications Home Medications Medication Instructions Recorded Confirmed Type simvastatin 20 mg tablet 20 mg PO QPM #90 tab 04/23/19 03/25/20 Rx furosemide 40 mg tablet 40 mg PO DAILY PRN #90 tab 05/09/19 03/25/20 History multivitamin 1 tab PO DAILY 05/09/19 03/25/20 History gabapentin 300 mg capsule 300 mg PO TID #270 cap 06/10/19 03/25/20 Rx meclizine 25 mg tablet 25 mg PO Q8H PRN tab 06/13/19 03/25/20 History metoprolol succinate 25 mg 25 mg PO DAILY 06/13/19 03/25/20 History tablet,extended release 24 hr calcium carbonate 600 mg(1,500 1 tab PO BID #60 tab 07/25/19 03/25/20 Rx mg)-vitamin D3 800 unit chewable tablet magnesium oxide 400 mg PO DAILY #30 cap 07/25/19 03/25/20 Rx aspirin [Aspir-81] 81 mg PO DAILY 03/25/20 03/25/20 History cholecalciferol (vitamin D3) 25 mcg PO AMPM 03/25/20 03/25/20 History hydralazine 25 mg PO BID 03/25/20 03/25/20 History oxybutynin chloride 5 mg PO BID 03/25/20 03/25/20 History warfarin 2.5 mg PO [id number] 03/25/20 03/25/20 History warfarin 5 mg PO WK 03/25/20 03/25/20 History Past Med/Surg History Social History Preferred Language: Burkinan Communication Ability: Effective Customer Leader Required: No Beliefs That Will Affect Care: None marital status: / Current Living Situation: Family Current Living Situation Comment: dtr antoine current occupational status: retired Feels Safe at Home: No Smoking Status: Never smoker Hx Alcohol Use: No Hx Substance Use: No Dental Care, Regularly: No Seatbelt Use: always Review of Systems Review of Systems: All systems reviewed & are unremarkable except as noted in HPI & below Physical Exam Physical Exam: General: patient resting comfortably, NAD, non-toxic in appearance, AA&O x 4 Skin: warm, dry, intact, no rashes or lesions HEENT: NC/AT, PERRL, EOMI, anicteric sclera, conjunctiva without injection, external ear normal to inspection and nontender, nares patent, moist mucus membranes, dentition intact, no oropharyngeal lesions, neck supple, trachea midline, no LAD, no thyromegaly, no JVD Heart: +S1/S2, irregularly irregular, no m/r/g Lungs: equal air entry bilaterally, no rales/rhonchi/wheezes Abd: +BS, soft, NT/ND, no masses/organomegaly/ascites Ext: warm, 2+ pulses in UE/LE bilaterally, no clubbing/cyanosis or edema Neuro: nonfocal, patient AA&O x 4, speech intact, no facial droop, moving all extremities on command with equal strength 5/5 Results & Data Results & Data ([facility]) Vital Signs (Past 12 Hours) Vital Signs Temp Pulse Pulse Resp BP BP Pulse Ox 03/26/20 01:52 36.6 C 51 L 20 146/84 H 96 03/26/20 01:26 54 L 16 121/67 96 03/26/20 00:48 63 18 148/74 H 99 03/25/20 23:33 52 L 19 143/66 H 95 03/25/20 21:50 55 L 20 131/65 93 03/25/20 21:18 62 22 132/71 94 03/25/20 20:02 81 22 185/81 H 96 03/25/20 18:40 37.2 C 68 22 139/80 92 Laboratory Results Lab Results 03/25/20 03/25/20 03/25/20 Range/Units 19:51 19:51 19:51 WBC 11.04 H (4.8-10.8) K/uL RBC 4.57 (4.2-5.4) M/uL Hgb 13.4 (12.0-16.0) g/dL Hct 41.5 (37-47) % MCV 90.8 (80-100) fL MCH 29.3 (25-34) pg MCHC 32.3 (32-36) g/dL RDW Std Deviation 48.0 H (36.4-46.3) fL RDW Coeff of Chris 14.4 (11.5-14.5) % Plt Count 157 (130-400) K/uL MPV 9.7 (7.4-10.4) fL Immature Gran % (Auto) 0.2 % Neut % (Auto) 81.3 % Lymph % (Auto) 9.8 % [place] % (Auto) 7.3 % Eos % (Auto) 1.2 % Baso % (Auto) 0.2 % Neut # (Auto) 8.98 H (1.4-6.5) K/uL Lymph # (Auto) 1.08 L (1.2-3.4) K/uL [place] # (Auto) 0.81 H (0.11-0.59) K/uL Eos # (Auto) 0.13 (0-0.5) K/uL Baso # (Auto) 0.02 (0-0.2) K/uL Immature Gran # (Auto) 0.02 (0.00-0.02) K/uL PT 19.3 H (9.0-12.0) Seconds INR 1.9 H (0.9-1.1) APTT 37.7 H (21.0-31.0) Seconds PTT Ratio 1.4 Sodium 136 (136-145) mmol/L Potassium 3.6 (3.5-5.1) mmol/L Chloride 100 (98-107) mmol/L Carbon Dioxide 32 (21-32) mmol/L Anion Gap 4.0 (3-11) BUN 16 (7-18) mg/dl Creatinine 1.05 (0.6-1.2) mg/dl Est Cr Clr Drug Dosing 37.1 ml/min Est GFR ( Amer) 58.1 Est GFR (Non-Af Amer) 50.1 BUN/Creatinine Ratio 15.2 (10-20) Glucose 123 H (70-99) mg/dl Calcium 8.9 (8.5-10.1) mg/dl Magnesium 2.0 (1.8-2.4) mg/dl Total Bilirubin 1.1 H (0.2-1) mg/dl AST 14 L (15-37) U/L ALT 18 (12-78) U/L Alkaline Phosphatase 61 (45-117) U/L Troponin I < 0.015 (0-0.045) ng/ml Total Protein 6.8 (6.4-8.2) gm/dl Albumin 3.5 (3.4-5.0) gm/dl Globulin 3.3 (2.5-4.0) gm/dl Albumin/Globulin Ratio 1.1 (0.9-2) TSH 0.854 (0.300-4.500) uIu/ml Urine Color Urine Appearance (Clear) Urine pH (4.5-7.5) Ur Specific [place] (1.000-1.030) Urine Protein (Negative) Urine Glucose (UA) (Negative) Urine Ketones (Negative) Urine Blood (Negative) Urine Nitrite (Negative) Urine Bilirubin (Negative) Urine Urobilinogen (Negative) Ur Leukocyte Esterase (Negative) Urine WBC (Auto) (0-5) /hpf Urine RBC (Auto) (0-4) /hpf U Hyaline Cast (Auto) (0-5) /lpf U Epithel Cells (Auto) (0-5) /lpf Urine Bacteria (Auto) (Negative) COVID-19 PCR (Negative) 03/25/20 03/25/20 Range/Units 20:04 21:58 WBC (4.8-10.8) K/uL RBC (4.2-5.4) M/uL Hgb (12.0-16.0) g/dL Hct (37-47) % MCV (80-100) fL MCH (25-34) pg MCHC (32-36) g/dL RDW Std Deviation (36.4-46.3) fL RDW Coeff of Chris (11.5-14.5) % Plt Count (130-400) K/uL MPV (7.4-10.4) fL Immature Gran % (Auto) % Neut % (Auto) % Lymph % (Auto) % [place] % (Auto) % Eos % (Auto) % Baso % (Auto) % Neut # (Auto) (1.4-6.5) K/uL Lymph # (Auto) (1.2-3.4) K/uL [place] # (Auto) (0.11-0.59) K/uL Eos # (Auto) (0-0.5) K/uL Baso # (Auto) (0-0.2) K/uL Immature Gran # (Auto) (0.00-0.02) K/uL PT (9.0-12.0) Seconds INR (0.9-1.1) APTT (21.0-31.0) Seconds PTT Ratio Sodium (136-145) mmol/L Potassium (3.5-5.1) mmol/L Chloride (98-107) mmol/L Carbon Dioxide (21-32) mmol/L Anion Gap (3-11) BUN (7-18) mg/dl Creatinine (0.6-1.2) mg/dl Est Cr Clr Drug Dosing ml/min Est GFR ( Amer) Est GFR (Non-Af Amer) BUN/Creatinine Ratio (10-20) Glucose (70-99) mg/dl Calcium (8.5-10.1) mg/dl Magnesium (1.8-2.4) mg/dl Total Bilirubin (0.2-1) mg/dl AST (15-37) U/L ALT (12-78) U/L Alkaline Phosphatase (45-117) U/L Troponin I (0-0.045) ng/ml Total Protein (6.4-8.2) gm/dl Albumin (3.4-5.0) gm/dl Globulin (2.5-4.0) gm/dl Albumin/Globulin Ratio (0.9-2) TSH (0.300-4.500) uIu/ml Urine Color Dark Yellow Urine Appearance Clear (Clear) Urine pH 8.5 H (4.5-7.5) Ur Specific [place] 1.019 (1.000-1.030) Urine Protein Negative (Negative) Urine Glucose (UA) Negative (Negative) Urine Ketones Negative (Negative) Urine Blood Negative (Negative) Urine Nitrite Negative (Negative) Urine Bilirubin Negative (Negative) Urine Urobilinogen Negative (Negative) Ur Leukocyte Esterase 2+ H (Negative) Urine WBC (Auto) 10-30 H (0-5) /hpf Urine RBC (Auto) 5-10 H (0-4) /hpf U Hyaline Cast (Auto) 0 (0-5) /lpf U Epithel Cells (Auto) 10-20 H (0-5) /lpf Urine Bacteria (Auto) Negative (Negative) COVID-19 PCR NEGATIVE (Negative) Diagnostic Findings XR chest 1V portable HISTORY: 79 years-old Female weakness acute weakness COMPARISON: Chest radiograph 05/31/2017 TECHNIQUE: Portable AP view of the chest FINDINGS: Cardiac silhouette is enlarged. Aortic valvular endograft. Calcified plaque of the thoracic aortic arch. Mitral annular calcifications. Linear subsegmental scarring of the lateral left lung base. No pneumothorax, pleural effusion, overt pulmonary edema or airspace consolidation typical for pneumonia. Degenerative changes of the shoulders and spine. Chronic loose body of the right subscapularis recess. IMPRESSION: Cardiomegaly without acute process. ACT 112: Negative or not required by law. The above report was generated using voice recognition software. It may contain grammatical, syntax or spelling errors. Electronically signed by: Keaton Spicer M.D. 03/25/2020 7:46 PM Dictated: 03/25/201944 Transcribed: 03/25/201944 ECG Additional Comments: EKG with atrial fibrillation at 68bpm, leftward axis, QRS=82, BBz=893, no acute ischemic changes Code Status & VTE Plan Code Status FULL PG Care Time/CCT Total # of Minutes Spent Total Time Spent with Patient: Total time spent is greater than 50% in coordination of care (as documented) at patient's floor/unit and/or counseling patient: Coding Level of Care Code 81504 OBS Care - Level 3 Diagnoses Substernal chest pain R07.2 Weakness R53.1 A-fib I48.91 Atrial fibrillation type: unspecified Malignant essential hypertension I10 (1) A-fib Atrial fibrillation type: unspecified Qualified Code(s): I48.91 - Unspecified atrial fibrillation
[2020-03-26 07:16] LABS: Basophils # (auto) 0.02 K/uL (0-0.2); Basophils % (auto) 0.3 %; Eosinophils # (auto) 0.17 K/uL (0-0.5); Eosinophils % (auto) 2.5 %; Hemoglobin 12.9 g/dL (12.0-16.0); Immature Granulocytes # (auto) 0.01 K/uL (0.00-0.02); Immature Granulocytes % (auto) 0.1 %; Lymphocytes # (auto) 1.44 K/uL (1.2-3.4); Lymphocytes % (auto) 21.4 %; Mean Corpuscular Hemoglobin 29.1 pg (25-34); Mean Corpuscular Hgb Conc 32.3 g/dL (32-36); Mean Corpuscular Volume 90.1 fL (80-100); Mean Platelet Volume 9.7 fL (7.4-10.4); Monocytes # (auto) 0.64 K/uL (0.11-0.59); Monocytes % (auto) 9.5 %; Neutrophils # (auto) 4.45 K/uL (1.4-6.5); Neutrophils % (auto) 66.2 %; Platelet Count 152 K/uL (130-400); RDW Coefficient of Variation 14.3 % (11.5-14.5); RDW Standard Deviation 47.1 fL (36.4-46.3); Red Blood Count 4.44 M/uL (4.2-5.4); White Blood Count 6.73 K/uL (4.8-10.8)
[2020-03-26 07:49] LABS: BUN Creatinine Ratio 14.9 (10-20); Blood Urea Nitrogen 15 mg/dl (7-18); Calcium 8.9 mg/dl (8.5-10.1); Carbon Dioxide 34 mmol/L (21-32); Chloride 103 mmol/L (98-107); Creatinine Clr Calc Pharmacy 37.7 ml/min; Est GFR (African American) 60.9; Est GFR (Non-African American) 52.5; Glucose 98 mg/dl (70-99); Potassium 4.2 mmol/L (3.5-5.1); Sodium 141 mmol/L (136-145); Troponin I < 0.015 ng/ml (0-0.045)
[2020-03-26] MEDS: GABAPENTIN 300 MG CAP PO SCH ×2 (08:48→13:40)
[2020-03-26] MEDS ORDERED: CALCIUM 600MG + VIT D 400 IU TAB PO SCH (09:00)
[2020-03-26] MEDS ORDERED: MAGNESIUM OXIDE 400 MG TAB PO SCH (09:00)
[2020-03-26] MEDS ORDERED: METOPROLOL SUCC 25MG EXT REL TAB PO SCH (09:00)
[2020-03-26] MEDS ORDERED: CHOLECALCIFEROL 1,000 UNITS 25 MCG TAB PO SCH (09:00)
[2020-03-26] MEDS ORDERED: ASPIRIN 81 MG ECTAB PO SCH (09:00)
[2020-03-26] MEDS ORDERED: OXYBUTYNIN CHLORIDE 5 MG TAB PO SCH (09:00)
[2020-03-26] MEDS ORDERED: IBUPROFEN 200 MG TAB PO STA (11:36)
--- NOTE | 2020-03-26 15:14 | Discharge Summary ---
Date of Service March 26, 2020 Admission HPI Per Admitting Provider Ale Rascon is an 79yo C female with history of AF. She was brought in by ambulance to [facility] this evening with complaint of weakness and fatigue as well as chest and back discomfort. The CP started this AM and resolved with Nitro Patient is quite fatigued and does not provide much history. She was administered Nitro which improved her chest pain. No additional complaints at this time. No known Covid-19 positive contacts. She denies recent travel, sick contacts. Principal Diagnosis Chest and back pain, likely muscular Discharge Exam Constitutional WD/WN, vitals as above Eyes PERRL, conjunctivae normal, anicteric sclerae ENMT external ear and nose normal, oropharynx normal Neck trachea midline, no thyromegaly Respiratory normal respiratory effort, lungs clear to auscultation Cardiovascular RRR, no murmur, no edema Chest (Breasts) Chest: normal inspection of chest (palpation of sternum and anterior ribs causes pain) Gastrointestinal (Abdomen) normal bowel sounds, soft, nontender, no hepatosplenomegaly Musculoskeletal no cyanosis or clubbing, extremities motor strength 5/5 Skin no rashes, warm and dry Neurologic patellar DTR's 2+ bilat, sensation intact and PERRL, EOMI, accommodation nl, no face palsy, no dysarthria Psychiatric A+Ox3, euthymic affect Lymphatic no cervical or axillary lymphadenopathy Discharge Data Allergies Allergy/AdvReac Type Severity Reaction Status Date / Time Penicillins Allergy Unknown UNKNOWN Verified 03/27/20 13:54 propoxyphene Allergy Unknown UNKNOWN Unverified 03/27/20 13:54 acetaminophen AdvReac Unknown hallucinati Unverified 03/27/20 13:54 ons hydrocodone AdvReac Unknown HALLUCINATI Unverified 03/27/20 13:54 ONS oxycodone AdvReac Unknown hallucinati Unverified 03/27/20 13:54 ons Consultations 03/25/20 21:07 ED Decision to Admit Stat Hospital Course (1) Substernal chest pain: EKG with no ischemic changes, troponin unremarkable -Observation with telemetry monitoring - troponin negative x 3 sets, no evidence that this is ACS -Continue ASA 81mg po daily -Continue Metoprolol 25mg po daily -Continue Simvastatin 20mg po daily pain is reproducible improved with ibuprofen 400mg advised patient to take ibuprofen TID as needed with food for 5 days discussed with her daughter (2) Weakness: Etiology unclear. Patient is afebrile, HD stable, no obvious source of infection, COVID-19 negative participated in PT, walked in the hallway, stable for discharge (3) A-fib: Rate controlled, patient anticoagulated on Warfarin -Continue Metoprolol -Continue Coumadin - monitor INR (4) Malignant essential hypertension: Blood pressure stable at present -Continue Metoprolol -Continue Hydralazine [place] -Continue to monitor (5) Abnormal urinalysis: UA with possible infection discharged home on Keflex however, urine culture with 3 types of organisms, no clear infection Total Time Total Time Spent Total Time Spent (In Minutes): 36 minutes Total Time Includes: Examination of the Patient, Discharge Planning, Medication Reconciliation and Other (talked with patient's daughter) Discharge Plan Discharge Items Patient Disposition: Home - Self-Care Reason For Visit: CHEST PAIN Discharge Diagnosis: Chest pain, musculoskeletal UTI Condition on Discharge: Good Goals: use ibuprofen for chest pain complete course of Keflex for UTI follow up with PCP Activity: Resume your previous activity Weightbearing: Full weightbearing Non-emergency contact: Primary Care Provider Call non-emergency contact if: you have any medication questions, your symptoms worsen and you have a fever Follow-up/Referrals: Lillian Yi CRNP [Primary Care Provider] - (one week) Diet: Heart Healthy Addtl Attending Provider Instructions: Medications: - IBUPROFEN: take 400mg every 8 hours as needed for pain, would not take more than 5 days, obtain over the counter - KEFLEX: 500mg twice a day for 6 days, start this evening Chest pain: EKG without ischemic changes troponin negative for 3 sets, this rules out heart attack chest is tender to palpation, suggests a musculoskeletal issue resolved with ibuprofen, continue to take as needed, make sure you take with food to avoid GI upset UTI: urinalysis is dirty, suggests infection, urine culture still pending will send home on Keflex, will call if anything changes based on culture results Pending Studies at Discharge: Yes Studies:: urine culture Stand-Alone Forms: [employer], Smoking Cessation Medications and DC Order Prescriptions: New cephalexin [Keflex] 500 mg capsule 500 mg PO BID 6 Days Qty: 12 RF: 0 Continued gabapentin 300 mg capsule 300 mg PO TID Qty: 270 RF: 3 magnesium oxide 400 mg magnesium capsule 400 mg PO DAILY Qty: 30 RF: 0 Caltrate 600 plus D 600 mg (1,500 mg)-800 unit tablet,chewable 1 tab PO BID Qty: 60 RF: 0 multivitamin tablet 1 tab PO DAILY RF: 0 metoprolol succinate 25 mg tablet extended release 24 hr 25 mg PO DAILY RF: 0 warfarin 5 mg tablet 5 mg PO WK RF: 0 warfarin 5 mg tablet 2.5 mg PO 6XWK RF: 0 cholecalciferol (vitamin D3) 25 mcg (1,000 unit) Tablet 25 mcg PO AMPM RF: 0 aspirin [Aspir-81] 81 mg Tablet,Delayed Release (Dr/Ec) 81 mg PO DAILY RF: 0 hydralazine 25 mg tablet 25 mg PO BID RF: 0 Hold Instructions: per Dr Cantor No Action meclizine 25 mg tablet 25 mg PO Q8H PRN (Reason: Dizziness) Qty: 30 RF: 3 simvastatin 20 mg tablet 20 mg PO QPM Qty: 90 RF: 3 furosemide 40 mg tablet 40 mg PO DAILY Qty: 90 RF: 3 solifenacin [Vesicare] 5 mg tablet 5 mg PO DAILY Qty: 30 RF: 5 Discharge Orders: Discharge Order (Routine); Ordered 03/26/20 Ordered By: Naman Nunez Admission Data Admit Date/Time: 03/25/20 22:07 Attending Provider: Naman Nunez Admit Provider: Kenna Mccartney Primary Care Provider: Lillian Yi. Other Interventions: Discharge Summary Assessment (RN) Last Done: 03/26/20 15:08 DC Date/Time DO NOT enter until pt leaves facility: 03/26/20 16:12 Coding Level of Care Code 69370 OBS Care - Discharge Diagnoses Substernal chest pain R07.2 Weakness R53.1 A-fib I48.91 Atrial fibrillation type: unspecified Malignant essential hypertension I10 Abnormal urinalysis R82.90
[2020-03-26] MEDS ORDERED: SIMVASTATIN 20 MG TAB PO SCH (21:00)
--- NOTE | 2020-03-27 04:29 | Electrocardiogram Report ---
Test Reason : Blood Pressure : / mmHG Vent. Rate : 068 BPM Atrial Rate : 078 BPM P-R Int : 000 ms QRS Dur : 082 ms QT Int : 402 ms P-R-T Axes : 000 -29 008 degrees QTc Int : 427 ms Atrial fibrillation Low voltage QRS Septal infarct (cited on or before 13-AUG-2015) Abnormal ECG When compared with ECG of 31-MAY-2017 16:17, No significant change was found Confirmed by Wallace Frederick ([id number]) on 03/27/2020 4:28:44 AM Referred By: REFERRED SELF Confirmed By:Wallace Frederick
[2020-03-27] MEDS ORDERED: WARFARIN SOD 2.5 MG TAB PO SCH (16:00)
[2020-03-28] MEDS ORDERED: WARFARIN SOD 5 MG TAB PO SCH (16:00)
== END 2020-03-26 16:12 | disposition home or self-care (01) ==
LOC: 2N 18:15 → ED 18:15 → SUATTDRO 22:07 → 2N 03-26 01:31